=== PATIENT | female | born 1995 | race Two or more races ===

== ENCOUNTER 2025-01-04 18:39 | Emergency (ER) | payer MEDICAID, SELFPAY ==
[2025-01-04 18:40] VITALS: BMI 37.4
[2025-01-04 19:24] VITALS: BP 117/74; PULSE 62; RESP 16; TEMP 37; O2SAT 98
--- NOTE | 2025-01-04 19:36 | EKG_ITS ---
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
--- NOTE | 2025-01-04 19:38 | EDNOTE_ITS ---
ED Abdominal Pain RME/HPI General Chief Complaint: Abdominal Pain Stated complaint: EPISGASTRIC PAIN Time seen by provider: 01/04/25 19:38 Arrival date/time: 01/04/25 18:39 Limitations: no limitations RME / HPI RME / HPI narrative: 29-year-old female with no reported past medical history presents for evaluation of epigastric pain x 1 day. She describes it as sharp, intermittent, without radiation. She reports that it started after eating breakfast this morning. She endorses prior similar symptoms but states that this episode is worse. She denies known history of gallbladder disease. Denies nausea, vomiting, diarrhea, hemoptysis, fever, chills, substernal chest pain, shortness of breath, cough. Onset (ago): day(s) Consistency: intermittent Location: epigastric Exacerbating factors: eating Related Data Previous Rx's ?Medication ?Instructions ?Recorded aluminum-mag hydroxide-simethicone 10 ml PO QID PRN dy spepsia #3,000 01/04/25 200 mg-200 mg-20 mg/5 mL oral susp mL (Advanced Antacid-Antigas) lidocaine HCl 2 % mucosal solution 10 ml PO PRN PRN dy spepsia #100 mL 01/04/25 (Lidocaine Viscous) ondansetron 4 mg disintegrating 4 mg PO Q8H PRN nausea and 01/04/25 tablet vomiting #14 tabs Allergies Allergy/AdvReac Type Severity Reaction Status Date / Time No Known Allergies Allergy Verified 01/04/25 18:40 Review of Systems Constitutional Constitutional: Denies body ache(s), Denies chills, Denies fever(s), Denies headache(s) and Denies night sweats Eyes Eyes: Denies blurry vision and Denies change in vision ENT Ears, Nose, Mouth, and Throat: Denies disequilibrium, Denies dizziness, Denies f acial pain, Denies headache(s) and Denies neck pain Cardiovascular Cardiovascular: Denies chest pain, Denies dyspnea, Denies irregular heart rhythm and Denies leg edema Respiratory Respiratory: Denies cough, Denies dyspnea, Denies hemoptysis and Denies wheezing Gastrointestinal Gastrointestinal: Reports abdominal pain, Denies change in stool character, Denies constipation, Reports dyspepsia, Denies hematemesis, Denies hematochezia, Denies nausea and Denies vomiting Genitourinary Genitourinary: Denies dysuria Musculoskeletal Musculoskeletal: Denies back pain and Denies neck pain Integumentary/Breasts Skin/Breast: Denies rash and Denies wounds Neurologic Neurologic: Denies disequilibrium, Denies dizziness and Denies headache(s) Allergic/Immunologic Allergic/Immunologic: Denies wheezing Past Medical History Past Medical History NEUROLOGIC: Negative Neurological Disorders CARDIAC: Negative Cardiac Disorders or Congestive Heart Failure RESPIRATORY: Negative Chronic Obstructive Pulmonary Disease (COPD) GASTROINTESTINAL: Negative Gastrointestinal Disorders GENITOURINARY: Negative Genitourinary Disorders or Renal Disease MUSCULOSKELETAL: Negative Musculoskeletal Disorders ENDOCRINE: Negative Endocrine Disorders, Diabetes Mellitus Type 1 or Diabetes Mellitus Type 2 HEMATOLOGIC: Positive Blood Disorders and Anemia; Negative Leukemia, Hemophilia, Thalassemia, Sickle Cell Disease or Clotting Problems OTHER HISTORY: Negative Autoimmune Disease Family History FAMILY HISTORY: Negative Family Psychiatric Problems, Family Respiratory Disorders, Family Cardiac Disorders, Family Gastrointestinal Problems, Family Cancer, Family Surgery or Family Anesthesia Reaction Social History SMOKING STATUS: Never smoker ED Exam General Limitations: Present no limitations General appearance: Present alert and in no apparent distress Head Head exam: Present atraumatic and normocephalic Eye Eye exam: Present normal appearance and EOMI; Absent scleral icterus ENT ENT exam: Present normal oropharynx and mucous membranes moist Neck Neck exam: Present normal inspection and full ROM Chest Chest inspection: Present normal inspection and symmetric chest wall rise Respiratory Respiratory exam: Present normal lung sounds bilaterally; Absent respiratory distress or wheezes Cardiovascular Cardiovascular exam: Present regular rate and +S1 Abdominal Exam Abdominal exam: Present soft and normal bowel sounds; Absent distention, tenderness, guarding, rebound, rigidity, organomegaly, incision, Crawford's sign or pulsatile mass Extremities Exam Extremities exam: Present normal inspection and full ROM Back Exam Back exam: Present normal inspection and full ROM Neurological Exam Neurological exam: Present alert Psychiatric Psychiatric exam: Present normal affect Skin Skin exam: Present warm, dry and normal color Course Quality Measures none Orders Category Date Time Status EKG (ED ONLY) *Do not use* NOW Care 01/04/25 19:36 Completed EKG (ED Only) Stat Exams 01/04/25 19:36 Draft CBC Stat Lab 01/04/25 20:02 Completed CMP [Comprehensive Metabolic Panel] Stat Lab 01/04/25 20:02 Completed HCG Qualitative,Urine Stat Lab 01/04/25 20:39 Completed Lipase Stat Lab 01/04/25 20:02 Completed Troponin I Stat Lab 01/04/25 20:02 Completed UA, C/S IF [Urinalysis, C/S if Indicated] Stat Lab 01/04/25 20:39 Completed Urine Culture Stat Lab 01/04/25 20:39 Completed DiphenhydrAMINE [Benadryl] Med 01/04/25 19:35 Discontinued 25 mg PO X1 ONE Lidocaine 2% Viscous [Xylocaine 2% Viscous] Med 01/04/25 19:35 Discontinued 15 ml PO X1 ONE mg Hyd/Al Hyd/Vineet Susp [Maalox Susp] Med 01/04/25 19:35 Discontinued 30 ml PO X1 ONE Reevaluation(s) Reevaluation #1: Reevaluated the patient who reports that her abdominal pain is resolved following GI cocktail. We discussed the results of today's workup including her elevated liver enzymes. Given she has had recent similar symptoms it is possible this is related to gallbladder disease. Patient is requesting to be discharged home with plan to follow-up with closely with primary care tomorrow. Reported she needs to return to the ED if her pain worsens she develops fever chest pain or shortness of breath. Patient is stable at time of discharge. Time: 23:25 Vital Signs Vital signs: Vital Signs Temperature 98.6 F 01/04/25 19:24 Pulse Rate 62 01/04/25 19:24 Respiratory Rate 16 01/04/25 19:24 Blood Pressure 117/74 01/04/25 19:24 Pulse Oximetry (%) 98 01/04/25 19:24 Oxygen Delivery Method Room Air 01/04/25 19:24 Pulse ox 98% on room air, within normal limits. Abdominal Pain MDM MDM Narrative MDM Narrative:: 29-year-old female present with epigastric pain x 1 day started after she was eating breakfast. Vital signs reassuring. Unremarkable physical exam. Patient denied known history of gallbladder disease and initially I ordered a CT abdomen and pelvis, however unfortunately due to it down CT machine and delay in patient care wait time was extensive for CT. I gave the patient a GI cocktail and upon reevaluation discussed with her wait time for CT abdomen pelvis. Using shared decision making canceled CT abdomen pelvis with plan for her to follow-up with primary care for further evaluation and treatment. Cardiac workup today was negative. We did discuss her elevated liver enzymes which may point towards gallbladder involvement. Lipase and bilirubin were within normal limits therefore less concern for ductal involvement. Ultimately patient was discharged with antacids and plan to follow-up with primary care. Patient stable at time discharge. Patient data External records reviewed:: [facility] previous records Clinical information provided by:: patient Social determinants that could affect healthcare access:: none Patient has the following chronic illnesses:: None reported. How is presenting disease/condition affected by chronic disease/condition?: no chronic disease Evaluation data The following diagnostics were reviewed and interpreted by me:: lab results and radiology exam(s) Lab and/or radiology exams considered but not ordered:: CT abdomen and pelvis initially ordered but unfortunately due to down CT machine and prolonged delay in care was ultimately canceled using shared decision making with patient following improvement in her symptoms after GI cocktail and stable workup. Interpretation Summary: Troponin negative. EKG with nonspecific ST changes, no STEMI, normal rate. Tr ansaminitis on metabolic panel. No anemia or leukocytosis on CBC. Lipase normal. Medications / Prescriptions Medications or Prescriptions considered but not ordered:: Rx given. Medication administrations:: Medication Administration History Discontinued Medications Al Hydrox/Mg Hydrox/Simethicone (Mg Hyd/Al Hyd/Vineet (Maalox Reg) Susp 30 Ml Udc) 30 ml PO X1 ONE Stop: 01/04/25 19:36 Last Admin: 01/04/25 20:11 Dose: 30 ml Documented By: WILNER Diphenhydramine HCl (Diphenhydramine Elix 25 Mg/10 Ml Udc) 25 mg PO X1 ONE Stop: 01/04/25 19:36 Last Admin: 01/04/25 20:10 Dose: 25 mg Documented By: WILNER Lidocaine HCl (Lidocaine Viscous 2% 15 Ml Udc) 15 ml PO X1 ONE Stop: 01/04/25 19:36 Last Admin: 01/04/25 20:11 Dose: 15 ml Documented By: WILNER Rx given. Consultations Consultation(s) initiated? (list below): No Diagnosis Differential diagnosis abdominal pain: abdominal pain, calculus of kidney, diverticulitis, gastroenteritis, pancreatitis and other (GERD, cholelithiasis, cholecystitis, choledocholithiasis. ) Most likely diagnosis given after review of the tests above:: Abdominal pain, GERD. Admission Indicated Admission indicated?: not indicated Admission Request Was there a request for admission?: No Disposition Plan Disposition Plan: Discharge Discharge Attestation Discharge Attestation: The patient and all family members were given an opportunity to ask questions and understood the discharge instructions. Discharge instructions specifically effects, indications for sooner follow up or return to the emergency department, and the expected course of current diagnosis. Patient condition: Stable Discharge Plan Plan Patient Disposition: Elopement Disposition Comment: stable Prescriptions/Referrals Prescriptions/Med Rec: New alum-mag hydroxide-simeth [Advanced Antacid-Antigas] 200-200-20 mg/5 mL suspension 10 ml PO QID PRN (Reason: dyspepsia) Qty: 3000 0RF Rx Instructions: administer between meals and at bedtime lidocaine HCl [Lidocaine Viscous] 2 % solution 10 ml PO PRN PRN (Reason: dyspepsia) Qty: 100 0RF ondansetron 4 mg tablet,disintegrating 4 mg PO Q8H PRN (Reason: nausea and vomiting) Qty: 14 0RF Referrals: No Primary/Family,Physician [Primary Care Provider] - In 1 week Problem List Clinical Impression: Abdominal pain, Elevated liver enzymes Impression comment: Take Maalox daily for the next x 2 weeks. Take viscous lidocaine as needed for abdominal pain. Take Zofran as needed for nausea and vomiting. Follow-up with primary care regarding elevated liver enzymes. Return to the ED if your symptoms worsen or change. Patient/Caregiver Discharge Instructions Other Activity Instructions:: Take Maalox daily for the next x 2 weeks. Take viscous lidocaine as needed for abdominal pain. Take Zofran as needed for nausea and vomiting. Follow-up with primary care regarding elevated liver enzymes. Return to the ED if your symptoms worsen or change. Education Materials: Abdominal Pain, Treating Gallstones Print Language: Setswana Stand Alone Forms: Polina Award Info., Patient Portal Info Letter PA/ELECTRON MICROSCOPIST Supervising Physician PA/ELECTRON MICROSCOPIST Supervising Physician: Dr. Horton
[2025-01-04] MEDS: DiphenhydrAMINE ELIX 25 MG/10 ML UDC PO (20:10)
[2025-01-04] MEDS: MG HYD/AL HYD/SIME (Maalox Reg) SUSP 30 ML UDC PO (20:11)
[2025-01-04] MEDS: LIDOCAINE VISCOUS 2% 15 ML UDC PO (20:11)
[2025-01-04 20:12] LABS: Basophils % (Auto) 0 % (0-2.5); Eosinophils # (Auto) 0.1 Thou/mm3 (0.0-0.5); Eosinophils % (Auto) 1 % (0-10); Hematocrit 37.3 % (36.0-46.0); Hemoglobin 12.5 g/dL (12.0-16.0); Immature Granulocytes % (Auto) 0 % (0-0); Immature Granulocytes Auto 0.03 Thou/mm3 (0.00-0.00); Lymphocytes # (Auto) 1.9 Thou/mm3 (1.0-4.8); Lymphocytes % (Auto) 18 % (10-50); Mean Corpuscular HGB Conc 33.5 g/dl (31.0-37.0); Mean Corpuscular Hemoglobin 30.9 pg (25.0-35.0); Mean Corpuscular Volume 92 fL (80-100); Monocytes # (Auto) 0.9 Thou/mm3 (0.0-0.8); Monocytes % (Auto) 8 % (0-12); Neutrophils # (Auto) 7.6 Thou/mm3 (1.8-7.7); Neutrophils % (Auto) 72 % (37-80); Nucleated Red Blood Cell % 0 /100 WBC (0); Platelet Count 336 Thou/mm3 (140-440); RDW Standard Deviation 43.5 fL (36.4-46.3); Red Blood Count 4.05 Miln/mm3 (4.00-5.20); White Blood Count 10.5 Thou/mm3 (3.6-11.0)
[2025-01-04 20:29] LABS: Alanine Aminotransferase 101 U/L (10-49); Albumin, Serum 4.5 gm/dL (3.5-5.0); Albumin/Globulin Ratio 1.7 (1.2-2.2); Alkaline Phosphatase 59 U/L (46-116); Anion Gap 7 (7-16); Aspartate Amino Transferase 91 U/L (0-34); BUN/Creatinine Ratio 21 Ratio (12-20); Bilirubin,Total 0.5 mg/dL (0.3-1.2); Blood Urea Nitrogen 17 mg/dL (9-23); Calcium 9.3 mg/dL (8.3-10.6); Calcium (Corrected) 9.3 mg/dL (8.5-10.1); Carbon Dioxide 25.2 mMol/L (20.0-31.0); Chloride 107 mMol/L (98-107); Creatinine (Component) 0.8 mg/dL (0.6-1.3); Estimated Creatinine Clearance 87.7 mL/min (>60); Globulin 2.6 gm/dL (2.3-3.5); Glucose 76 mg/dL (74-106); Lipase 35 U/L (12-53); Osmolality,Calculated 278 (275-295); Potassium 3.7 mMol/L (3.4-5.1); Sodium 139 mMol/L (136-145); Total Protein 7.1 gm/dL (5.7-8.2); Troponin I < 0.002 ng/mL (0.0-0.045); eGFR > 60 See Note
[2025-01-04 20:43] LABS: Collection Type, Urine Clean Catch
[2025-01-04 20:54] LABS: HCG Qualitative,Urine Negative
[2025-01-04 21:00] LABS: Bacteria,Urine 1+; Bilirubin,Urine Negative (Negative); Blood,Urine Negative (Negative); Clarity,Urine Clear (Clear/Hazy); Color,Urine Yellow (Lt Yel-Yel); Glucose, Urine Negative (Negative); Hyaline Casts,Urine < 1 /hpf (0-1); Ketones,Urine Negative (Negative); Leukocyte Esterase,Urine Negative (Negative); Nitrite,Urine Negative (Negative); PH,Urine 5.5 (5.0-7.0); Protein,Urine Trace (Neg - Trace); RBC,Urine < 1 /hpf (0-3); Specific Gravity,Urine 1.038 (1.001-1.035); Squamous Epithelial Cell,Urine 6 /hpf (0-5); WBC,Urine 2 /hpf (0-5)
[2025-01-04 21:02] LABS: Culture Indicated,Urine Yes
--- NOTE | 2025-01-04 23:23 | PC.CC ---
Chen PISANO arranged transportation for CT with [facility] 1000
--- NOTE | 2025-01-05 01:05 | PC.NURSE ---
no answer x 1 at 0105. checked outside and lobby
--- NOTE | 2025-01-05 01:44 | PC.NURSE ---
CALLED PATIENT IN LOBBY AND OUTSIDE, NO ANSWER RECEIVED.
--- NOTE | 2025-01-05 02:20 | PC.NURSE ---
CALLED PATIENT IN THE LOBBY AND OUTSIDE, NO ANSWER RECEIVED.
== END 2025-01-05 02:21 | disposition left against medical advice (07) ==
PROVIDERS: Physician Assistant; Emergency Provider Emergency Medicine
DX: R10.13 Epigastric pain (principal); R74.8 Abnormal levels of other serum enzymes; Z53.29 Procedure and treatment not carried out because of patient's decision for other reasons
CPT/HCPCS: 36415; 80053; 81001; 81025; 83690; 84484; 85025; 87086; 93005; 99283; J3490; A9270

== ENCOUNTER 2025-03-04 20:37 | Inpatient (IN) | payer MEDICAID, SELFPAY ==
[2025-03-04 20:38] VITALS: BMI 32.0
[2025-03-04 22:33] VITALS: BP 135/82; PULSE 60; RESP 18; TEMP 36.6; O2SAT 99
[2025-03-04] MEDS: ONDANSETRON ODT 4 MG TABRAP PO (23:31)
[2025-03-04] MEDS: HYDROcodone/APAP 5/325 TABLET 1 TAB PO (23:31)
[2025-03-04 23:49] LABS: Basophils % (Auto) 0 % (0-2.5); Eosinophils % (Auto) 0 % (0-10); Hematocrit 39.4 % (36.0-46.0); Hemoglobin 13.4 g/dL (12.0-16.0); Immature Granulocytes % (Auto) 0 % (0-0); Immature Granulocytes Auto 0.03 Thou/mm3 (0.00-0.00); Lymphocytes # (Auto) 1.9 Thou/mm3 (1.0-4.8); Lymphocytes % (Auto) 18 % (10-50); Mean Corpuscular Hemoglobin 31.3 pg (25.0-35.0); Mean Corpuscular Volume 92 fL (80-100); Monocytes # (Auto) 0.8 Thou/mm3 (0.0-0.8); Monocytes % (Auto) 7 % (0-12); Neutrophils # (Auto) 7.8 Thou/mm3 (1.8-7.7); Neutrophils % (Auto) 74 % (37-80); Nucleated Red Blood Cell % 0 /100 WBC (0); Platelet Count 355 Thou/mm3 (140-440); RDW Standard Deviation 43.3 fL (36.4-46.3); Red Blood Count 4.28 Miln/mm3 (4.00-5.20); White Blood Count 10.6 Thou/mm3 (3.6-11.0)
[2025-03-05] VITALS (13 sets, daily range): BP systolic 116–148; BP diastolic 61–110; PULSE 52–73; RESP 16–22; TEMP 36.3–37.3; O2SAT 91–100; BMI 32.9
--- NOTE | 2025-03-05 | XR_ITS ---
Examination: Abdomen sonogram, Limited Date and time of exam: March 05, 2025 12 min 9 INDICATIONS: Epigastric pain beginning one day ago Technique: Real-time oro scale transabdominal sonographic images of the upper abdomen obtained. Findings: Multiple gallstones Normal gallbladder wall Normal common bile duct 0.3 cm Pancreatic head 3.2 cm Liver 16.8 cm fatty infiltration lobular contour Normal hepatopedal portal venous flow Patent IVC IMPRESSION: Cholelithiasis, primary hepatocellular disease
--- NOTE | 2025-03-05 | XR_ITS ---
MRI abdomen, without contrast. MRCP Date and time of exam: March 05, 2025 1431 hours INDICATIONS: Right upper abdominal pain epigastric pain nausea vomiting, intractable pain today with elevated transaminases Technique: Multiple axial and coronal images of the abdomen have been obtained with the Siemens 1.5T MRI scanner. Images obtained included T1 weighted transverse images, T2-weighted transverse images, T2-weighted transverse images fat-suppressed, T2 weighted haste fat suppressed transverse images, T1 weighted images, in and out of phase images, T2-weighted coronal images, breath hold, T2 weighted haze coronal images as well as T2 weighted coronal thick slab images, MRCP. Findings: Hepatomegaly 17 cm Gallstones Gallbladder wall shows mild edema The gallbladder is not distended Normal common hepatic common bile duct no stones No dilated pancreatic duct or peripancreatic edema No hydronephrosis No ascites Aorta normal size IMPRESSION: Cholelithiasis Mild gallbladder wall edema No common hepatic or common bile duct stones
[2025-03-05 00:20] LABS: Alanine Aminotransferase 623 U/L (10-49); Albumin, Serum 4.6 gm/dL (3.5-5.0); Albumin/Globulin Ratio 1.8 (1.2-2.2); Alkaline Phosphatase 83 U/L (46-116); Anion Gap 13 (7-16); Aspartate Amino Transferase 944 U/L (0-34); BUN/Creatinine Ratio 18 Ratio (12-20); Bilirubin,Total 0.8 mg/dL (0.3-1.2); Blood Urea Nitrogen 11 mg/dL (9-23); Carbon Dioxide 25.9 mMol/L (20.0-31.0); Chloride 105 mMol/L (98-107); Creatinine (Component) 0.6 mg/dL (0.6-1.3); Estimated Creatinine Clearance 122.4 mL/min (>60); Globulin 2.5 gm/dL (2.3-3.5); Glucose 131 mg/dL (74-106); Lipase 40 U/L (12-53); Osmolality,Calculated 288 (275-295); Potassium 4.1 mMol/L (3.4-5.1); Sodium 144 mMol/L (136-145); Total Protein 7.1 gm/dL (5.7-8.2); eGFR > 60 See Note
--- NOTE | 2025-03-05 00:54 | PRELIM_ITS ---
Gallbladder ultrasound. March 05, 2025 at 0000 hours Clinical history: RUQ/epigastric pain Technique: Grayscale and color flow images of the abdomen are provided. Comparison: No prior study is available for comparison. Findings: The liver is mildly enlarged measuring 16.8 cm. There is increased echogenicity of the liver without mass or ductal dilatation. The portal vein appears unremarkable. Multiple calculi are noted within the gallbladder, without evidence of gallbladder wall thickening or pericholecystic fluid. The common d uct is normal in caliber at 2.5 mm. No free fluid is demonstrated on the submitted images. The pancreas appears mildly bulky to the extent visualized. The inferior vena cava appears patent to the extent visualised. Impression: Cholelithiasis without evidence of acute cholecystitis or biliary obstruction. Mild hepatomegaly with fatty infiltration. Pancreas appears mildly bulky to the extent visualized. Recommend clinical, laboratory correlation and further evaluation with intravenous contrast CT to rule out possibility of pancreatitis. Report Electronically Signed By: Hallie Desai 03/05/2025 12:54:03 AM [EST]
[2025-03-05 01:01] LABS: Partial Thromboplastin Time 27.9 Seconds (22.0-36.0)
--- NOTE | 2025-03-05 01:19 | XR_ITS ---
Examination: CT abdomen with intravenous contrast CT pelvis with intravenous contrast 2-D coronal reconstructions 2-D sagittal reconstructions Date and time of exam:March 05, 2025, 0322 hours INDICATIONS: Epigastric pain and abdominal pain today, clinical diagnosis pancreatitis. CTDI: vol (mGy) 12 DLP: (mGycm) 600 Technique: Multiple axial sections of the abdomen and pelvis have been obtained. 64 slice high-resolution scanner used. 3 mm axial sections have been obtained, post intravenous injection 60 cc Isovue 370 2-D sagittal, coronal reconstructions obtained. Low dose protocols were performed. One or more of the following dose reduction techniques were used; automated exposure control, adjustment of the mA and/or KV according to patient size, use of iterative reconstruction technique. Findings: Fatty infiltration throughout the liver No focal liver or splenic lesions Gallbladder wall thickening No pancreatic edema No renal or ureteral calculi, no hydronephrosis Aorta normal size The appendix is mildly thickened but no definite periappendiceal inflammatory change No bowel obstruction Right pelvic 33 mm hypodense mass Contracted urinary bladder IMPRESSION: Acute cholecystitis The appendix is mildly thickened but no definite periappendiceal inflammatory change,, the appearance should be clinically correlated Recommend pelvic sonography to assess 33 mm hypodense mass right pelvis
[2025-03-05 01:41] LABS: Hepatitis A Antibody IgM Non Reactive (Non React); Hepatitis B Core Antibody IgM Non Reactive (Non React); Hepatitis B Surface Antigen Non Reactive (Non React); Hepatitis C Antibody Non Reactive (Non React)
[2025-03-05] MEDS: SODIUM CHLORIDE 0.9% 1000 ML 1,000 ML 999 ML IV ×2 (01:44→11:56)
[2025-03-05] MEDS: MORPHINE SULF INJ 10 MG/ML VIAL 5 MG IVP (01:49)
[2025-03-05] MEDS: ONDANSETRON INJ 2 MG/ML INJ 2 ML 4 MG IV ×2 (01:50→11:56)
[2025-03-05 02:33] LABS: HCG Qualitative,Urine Negative
[2025-03-05 04:40] LABS: Amphetamine/Methamp Scrn,U Negative (Negative); Barbiturate Screen,Urine Negative (Negative); Benzodiazepines Screen,Urine Negative (Negative); Benzoylecgonine Screen, Ur Negative (Negative); Fentanyl Screen,Urine Negative (Negative); Opiate Screen,Urine Negative (Negative); THC Screen,Urine Negative (Negative)
--- NOTE | 2025-03-05 04:42 | EDNOTE_ITS ---
ED Abdominal Pain RME/HPI General Chief Complaint: Abdominal Pain Stated complaint: EPIGASTRIC AREA PAIIN Time seen by provider: 03/04/25 22:10 Arrival date/time: 03/04/25 20:37 29F with history of gallstones presents to ED with 1 day of RUQ/epigastric pain (epi>RUQ) and N/V. Patient has outpatient gen surg referral scheduled, but hasn't seen them yet. Limitations: no limitations Related Data Previous Rx's ?Medication ?Instructions ?Recorded aluminum-mag hydroxide-simethicone 10 ml PO QID PRN dy spepsia #3,000 01/04/25 200 mg-200 mg-20 mg/5 mL oral susp mL (Advanced Antacid-Antigas) lidocaine HCl 2 % mucosal solution 10 ml PO PRN PRN dy spepsia #100 mL 01/04/25 (Lidocaine Viscous) ondansetron 4 mg disintegrating 4 mg PO Q8H PRN nausea and 01/04/25 tablet vomiting #14 tabs Allergies Allergy/AdvReac Type Severity Reaction Status Date / Time No Known Allergies Allergy Verified 03/04/25 20:43 Review of Systems Review of Systems Systems Reviewed: All systems reviewed, normal except as documented Constitutional Constitutional: Reports system reviewed and no additional complaints, except as documented, Denies fever(s) and Denies headache(s) ENT Ears, Nose, Mouth, and Throat: Denies disequilibrium and Denies headache(s) Cardiovascular Cardiovascular: Reports system reviewed and no additional complaints, except as documented, Denies chest pain and Denies dyspnea Respiratory Respiratory: Reports system reviewed and no additional complaints, except as documented, Denies cough and Denies dyspnea Gastrointestinal Gastrointestinal: Reports system reviewed and no additional complaints, except as documented, Reports as per HPI, Reports abdominal pain, Reports nausea and Reports vomiting Neurologic Neurologic: Reports system reviewed and no additional complaints, except as d ocumented, Denies confusion, Denies disequilibrium and Denies headache(s) Psychiatric Psychiatric: Denies confusion Past Medical History Past Medical History NEUROLOGIC: Negative Neurological Disorders CARDIAC: Negative Cardiac Disorders or Congestive Heart Failure RESPIRATORY: Negative Chronic Obstructive Pulmonary Disease (COPD) or Asthma GASTROINTESTINAL: Negative Gastrointestinal Disorders GENITOURINARY: Negative Genitourinary Disorders or Renal Disease MUSCULOSKELETAL: Negative Musculoskeletal Disorders ENDOCRINE: Negative Endocrine Disorders, Diabetes Mellitus Type 1 or Diabetes Mellitus Type 2 HEMATOLOGIC: Positive Blood Disorders and Anemia; Negative Leukemia, Hemophilia, Thalassemia, Sickle Cell Disease or Clotting Problems OTHER HISTORY: Negative Autoimmune Disease Family History FAMILY HISTORY: Negative Family Psychiatric Problems, Family Respiratory Disorders, Family Cardiac Disorders, Family Gastrointestinal Problems, Family Cancer, Family Surgery or Family Anesthesia Reaction Social History SMOKING STATUS: Never smoker ED Exam General Limitations: Present no limitations General appearance: Present alert and in no apparent distress Head Head exam: Present atraumatic Eye Eye exam: Present normal appearance, PERRL and EOMI ENT ENT exam: Present normal exam, normal oropharynx and mucous membranes moist Neck Neck exam: Present normal inspection, full ROM and trachea midline Chest Chest inspection: Present normal inspection and symmetric chest wall rise Respiratory Respiratory exam: Present normal lung sounds bilaterally Cardiovascular Cardiovascular exam: Present regular rate, normal rhythm and normal heart sounds Abdominal Exam Abdominal exam: Present soft and normal bowel sounds Abdominal tenderness: Present RUQ and epigastrium Extremities Exam Extremities exam: Present normal inspection and full ROM Back Exam Back exam: Present normal inspection and full ROM Neurological Exam Neurological exam: Present alert, oriented X3 and CN II-XII intact Psychiatric Psychiatric exam: Present normal affect and normal mood Skin Skin exam: Present warm, dry, intact and normal color Course Quality Measures none Orders Category Date Time Status Admit to Inpatient Status Routine Admission 03/05/25 18:00 Active Patient Condition Routine Admission 03/05/25 18:00 Ordered COVID-19 Screening Questionnaire NOW Care 03/05/25 05:[address] Screening NOW Care 03/05/25 01:19 Active Decision to Admit X1 Care 03/05/25 05:34 Completed Insert IV NOW Care 03/05/25 01:19 Active MRI Screening NOW Care 03/05/25 11:30 Active NPO NOW Care 03/05/25 00:26 Active NPO NOW Care 03/05/25 18:00 Active Notify provider NEEDED Care 03/05/25 18:00 Active Obtain weight NOW Care 03/05/25 18:00 Active Consult to General Surgery Stat Cons 03/05/25 05:34 Ordered Diet NPO (NOW) Diet 03/05/25 00:26 Completed Diet NPO (NOW) Diet 03/05/25 18:[address] abdomen pelvis w con Stat Exams 03/05/25 01:19 Completed MR MRCP Stat Exams 03/05/25 Completed US abdomen limited Stat Exams 03/05/25 11:30 Completed US gall bladder Stat Exams 03/05/25 00:00 Completed US pelvic complete Stat Exams 03/05/25 12:27 Completed Acetaminophen Stat Lab 03/05/25 17:50 Received CBC AM DRAW Lab 03/06/25 05:00 Ordered CBC AM DRAW Lab 03/07/25 05:00 Ordered CBC AM DRAW Lab 03/08/25 05:00 Ordered CBC AM DRAW Lab 03/09/25 05:00 Ordered CBC Stat Lab 03/04/25 23:33 Completed CBC Stat Lab 03/05/25 17:50 Received CMP [Comprehensive Metabolic Panel] AM DRAW Lab 03/06/25 05:00 Ordered CMP [Comprehensive Metabolic Panel] AM DRAW Lab 03/07/25 05:00 Ordered CMP [Comprehensive Metabolic Panel] AM DRAW Lab 03/08/25 05:00 Ordered CMP [Comprehensive Metabolic Panel] AM DRAW Lab 03/09/25 05:00 Ordered CMP [Comprehensive Metabolic Panel] Stat Lab 03/04/25 23:33 Completed CMP [Comprehensive Metabolic Panel] Stat Lab 03/05/25 17:50 Received Drug Screen,Urine Stat Lab 03/05/25 01:45 Completed Gamma Glutamyl Transpeptidase* Routine Lab 03/05/25 17:50 Received HCG Qualitative,Urine Stat Lab 03/05/25 01:45 Completed Hepatitis Acute Panel Stat Lab 03/05/25 00:26 Completed Hepatitis Acute Panel Stat Lab 03/05/25 11:45 Completed INR [Prothrombin Time with INR] Stat Lab 03/05/25 00:41 Completed Lipase Stat Lab 03/04/25 23:33 Completed Lipid Panel Stat Lab 03/05/25 11:45 Completed Magnesium AM DRAW Lab 03/06/25 05:00 Ordered Magnesium AM DRAW Lab 03/07/25 05:00 Ordered Magnesium AM DRAW Lab 03/08/25 05:00 Ordered Magnesium AM DRAW Lab 03/09/25 05:00 Ordered PTT [Partial Thromboplastin Time] Stat Lab 03/05/25 00:41 Completed Phosphorous AM DRAW Lab 03/06/25 05:00 Ordered Phosphorous AM DRAW Lab 03/07/25 05:00 Ordered Phosphorous AM DRAW Lab 03/08/25 05:00 Ordered Phosphorous AM DRAW Lab 03/09/25 05:00 Ordered Acetaminophen Tab [Tylenol Tab] Med 03/05/25 17:59 Active 650 mg PO Q6H PRN Acetaminophen Tab [Tylenol Tab] Med 03/05/25 17:59 Active 650 mg PO Q6H PRN DiphenhydrAMINE INJ [Benadryl Inj] Med 03/05/25 03:15 Discontinued 12.5 mg IVP X1 ONE HYDROcodone*/APAP 5/325 [[place] 5/325] Med 03/04/25 22:49 Discontinued 1 tab PO X1 ONE HYDROcodone/APAP 10/325 [[place] 10/325] Med 03/05/25 17:59 Active 1 tab PO Q4HR PRN Heparin Inj Med 03/05/25 22:00 Active 5,000 unit SC Q8HR Metoclopramide Inj [Reglan Inj] Med 03/05/25 03:15 Discontinued 10 mg IVP X1 ONE Morphine Inj Med 03/05/25 11:30 Discontinued 4 mg IVP X1 ONE Morphine Inj Med 03/05/25 01:40 Discontinued 5 mg IVP X1 ONE Ondansetron Inj [Zofran Inj] Med 03/05/25 01:40 Discontinued 4 mg IV X1 ONE Ondansetron Inj [Zofran Inj] Med 03/05/25 11:30 Discontinued 4 mg IV X1 ONE Ondansetron Inj [Zofran Inj] Med 03/05/25 17:59 Active 4 mg IVP Q6H PRN Ondansetron Odt [Zofran Odt] Med 03/04/25 22:49 Discontinued 4 mg PO X1 ONE Pantoprazole Inj [Protonix Inj] Med 03/05/25 18:00 Active 40 mg IVP QDAY Piper/Tazo 3.375 gm Premix [Zosyn] Med 03/05/25 18:15 Active 3.375 gm in 50 ml IV Q8HR Piper/Tazo 3.375 gm Premix [Zosyn] Med 03/05/25 05:33 Discontinued 3.375 gm in 50 ml IV X1 Sodium Chloride 0.9% 1000 ml [Ns] 1,000 ml Med 03/05/25 11:30 Discontinued IV 150 mls/hr Sodium Chloride 0.9% 1000 ml [Ns] 1,000 ml Med 03/05/25 00:26 Discontinued IV 999 mls/hr Sodium Chloride 0.9% 1000 ml [Ns] 1,000 ml Med 03/05/25 11:30 Discontinued IV 999 mls/hr oxyCODONE/APAP 5/325 [Percocet 5/325] Med 03/05/25 17:59 Active 1 tab PO Q6H PRN Code Status Routine Oth 03/05/25 17:59 Ordered Vital Signs Vital signs: Vital Signs Temperature 98 F 03/04/25 22:33 Pulse Rate 60 03/04/25 22:33 Respiratory Rate 18 03/04/25 22:33 Blood Pressure 135/82 H 03/04/25 22:33 Pulse Oximetry (%) 99 03/04/25 22:33 Oxygen Delivery Method Room Air 03/04/25 22:33 O2 at 99% on RA and WNLs Abdominal Pain MDM MDM Narrative MDM Narrative:: 29F with history of gallstones presents to ED with 1 day of RUQ/epigastric pain (epi>RUQ) and N/V. Patient has outpatient gen surg referral scheduled, but hasn't seen them yet. Physical exam reveals RUQ/epigastric tenderness (epi>RUQ). Patient is afebrile, calm, and alert. US reveals gallstones, but no gallbladder inflammation. It does show possibly enlarged pancreas. But lipase is normal. CMP reveals highly elevated LFTs, but normal bili. Alcohol/tox/HCG screen neg. Hep panel normal. Care signed out to colleague. Patient eventually admitted. Patient data External records reviewed:: [facility] previous records Clinical information provided by:: patient Social determinants that could affect healthcare access:: none Patient has the following chronic illnesses:: none How is presenting disease/condition affected by chronic disease/condition?: no chronic disease Evaluation data The following diagnostics were reviewed and interpreted by me:: lab results and radiology exam(s) Lab and/or radiology exams considered but not ordered:: ordered Interpretation Summary: above Medications / Prescriptions Medications or Prescriptions considered but not ordered:: ordered Medication administrations:: Medication Administration History Acetaminophen (Acetaminophen 325 Mg Tablet) 650 mg PO Q6H PRN PRN Reason: PAIN SCALE 1-3 (mild Stop: 04/04/25 17:58 Acetaminophen (Acetaminophen 325 Mg Tablet) 650 mg PO Q6H PRN PRN Reason: Fever >100.4 Stop: 04/04/25 17:58 Hydrocodone Bitart/Acetaminophen (Hydrocodone/Apap 10/325 Tab) 1 tab PO Q4HR PRN PRN Reason: PAIN SCALE 7-10 (Severe Stop: 03/10/25 17:58 Heparin Sodium (Porcine) (Heparin Sod Inj 5000 Unit/Ml Vial) 5,000 unit SC Q8HR JAIRO Stop: 03/19/25 21:59 Piperacillin/Tazobactam/Dextrose (Zosyn) 3.375 gm in 50 mls @ 12.5 mls/hr IV Q8HR JAIRO; Protocol Stop: 03/12/25 18:14 Ondansetron HCl (Ondansetron Inj 2 Mg/Ml Inj 2 Ml) 4 mg IVP Q6H PRN; Protocol PRN Reason: NAUSEA OR VOMITING Stop: 04/04/25 17:58 Oxycodone/Acetaminophen (Oxycodone/Apap 5/325 Tablet) 1 tab PO Q6H PRN PRN Reason: PAIN SCALE 4-6 (Moderate Stop: 03/10/25 17:58 Pantoprazole Sodium (Pantoprazole Inj 40 Mg Vial) 40 mg IVP QDAY JAIRO Stop: 04/04/25 17:59 Discontinued Medications Hydrocodone Bitart/Acetaminophen (Hydrocodone/Apap 5/325 Tablet) 1 tab PO X1 ONE Stop: 03/04/25 22:50 Last Admin: 03/04/25 23:31 Dose: 1 tab Documented By: Diphenhydramine HCl (Diphenhydramine Inj 50 Mg/Ml Vial) 12.5 mg IVP X1 ONE Stop: 03/05/25 03:16 Last Admin: 03/05/25 04:55 Dose: Not Given Documented By: WILNER Non-Admin Reason: Patient Refused Sodium Chloride (Ns) 1,000 mls @ 999 mls/hr IV .Q1H1M ONE Stop: 03/05/25 01:26 Last Infusion: 03/05/25 02:47 Dose: Infused Documented By: Admin: 03/05/25 01:44 Dose: 999 mls/hr Documented By: WILNER Piperacillin/Tazobactam/Dextrose (Zosyn) 3.375 gm in 50 mls @ 100 mls/hr IV X1 ONE Stop: 03/05/25 06:02 Last Infusion: 03/05/25 06:22 Dose: Infused Documented By: Admin: 03/05/25 05:47 Dose: 100 mls/hr Documented By: WILNER Sodium Chloride (Ns) 1,000 mls @ 150 mls/hr IV .Q6H40M ONE Stop: 03/05/25 18:09 Last Admin: 03/05/25 13:44 Dose: 150 mls/hr Documented By: CRISTIANE Sodium Chloride (Ns) 1,000 mls @ 999 mls/hr IV .Q1H1M ONE Stop: 03/05/25 12:30 Last Infusion: 03/05/25 13:45 Dose: Infused Documented By: Admin: 03/05/25 11:56 Dose: 999 mls/hr Documented By: CRISTIANE Metoclopramide HCl (Metoclopramide Inj 5 Mg/Ml Vial 2 Ml) 10 mg IVP X1 ONE; Protocol Stop: 03/05/25 03:16 Last Admin: 03/05/25 04:55 Dose: Not Given Documented By: WILNER Non-Admin Reason: Patient Refused Morphine Sulfate (Morphine Sulf Inj 10 Mg/Ml Vial) 5 mg IVP X1 ONE Stop: 03/05/25 01:41 Last Admin: 03/05/25 01:49 Dose: 5 mg Documented By: WILNER Morphine Sulfate (Morphine Sulf Inj 10 Mg/Ml Vial) 4 mg IVP X1 ONE Stop: 03/05/25 11:31 Last Admin: 03/05/25 11:56 Dose: 4 mg Documented By: CRISTIANE Ondansetron HCl (Ondansetron Odt 4 Mg Tabrap) 4 mg PO X1 ONE; Protocol Stop: 03/04/25 22:50 Last Admin: 03/04/25 23:31 Dose: 4 mg Documented By: Ondansetron HCl (Ondansetron Inj 2 Mg/Ml Inj 2 Ml) 4 mg IV X1 ONE; Protocol Stop: 03/05/25 01:41 Last Admin: 03/05/25 01:50 Dose: 4 mg Documented By: WILNER Ondansetron HCl (Ondansetron Inj 2 Mg/Ml Inj 2 Ml) 4 mg IV X1 ONE; Protocol Stop: 03/05/25 11:31 Last Admin: 03/05/25 11:56 Dose: 4 mg Documented By: CRISTIANE above Consultations Consultation(s) initiated? (list below): Yes Diagnosis Differential diagnosis abdominal pain: abdominal pain, acute appendicitis, calculus of kidney, constipation, diverticulitis, endometriosis, gastroenteritis, pancreatitis, small bowel obstruction and other (biliary disease) Most likely diagnosis given after review of the tests above:: biliary disease Admission Indicated Admission indicated?: indicated Admission Request Was there a request for admission?: Yes Admission Attestation Admission request attestation: Discussed case with [] from Hospitalist service regarding admission. Discussed patients ED course, exam findings, labs, and radiology results. The Hospitalist [agrees,declines] to accept the patient for admission. Disposition Plan Disposition Plan: Admit Discharge Plan Plan Patient Disposition: Admit Acute Care w/in Hospital Prescriptions/Referrals Prescriptions/Med Rec: No Action alum-mag hydroxide-simeth [Advanced Antacid-Antigas] 200-200-20 mg/5 mL suspension 10 ml PO QID PRN (Reason: dyspepsia) Qty: 3000 0RF Rx Instructions: administer between meals and at bedtime lidocaine HCl [Lidocaine Viscous] 2 % solution 10 ml PO PRN PRN (Reason: dyspepsia) Qty: 100 0RF ondansetron 4 mg tablet,disintegrating 4 mg PO Q8H PRN (Reason: nausea and vomiting) Qty: 14 0RF Referrals: No Primary/Family,Physician [Primary Care Provider] - In 1 week Problem List Clinical Impression: Intractable abdominal pain, Cholelithiasis, Elevated transaminase level Patient/Caregiver Discharge Instructions Print Language: Khmer Stand Alone Forms: Polina Award Info., Patient Portal Info Letter
[2025-03-05] MEDS: PIPER/TAZO 3.375 GM PREMIX 3.375 GM/50 ML BAG IV ×2 (05:47→18:46)
--- NOTE | 2025-03-05 08:00 | PC.NURSE ---
In to assess pt. Pt resting quietly at this time without any complaints. Report 0/10 pain at this time. Call light placed within reach. Plan for consult by Dr. Gentile. Plan of care ongoing.
--- NOTE | 2025-03-05 11:30 | XR_ITS ---
Examination: Abdomen sonogram, Limited Date and time of exam: March 05, 2025 1244 hours INDICATIONS: Right upper abdominal pain epigastric pain nausea vomiting today Technique: Real-time oro scale transabdominal sonographic images of the upper abdomen obtained. Findings: Multiple gallstones Gallbladder wall 0.7 cm with edema Common bile duct 0.5 cm Pancreatic head 3.3 cm Liver 17.1 cm fatty infiltration no focal liver lesions Normal hepatopedal portal venous flow Patent IVC IMPRESSION: Acute calculus cholecystitis
--- NOTE | 2025-03-05 11:34 | PD.EDADULT ---
ED General RME/HPI General Chief complaint: Abdominal Pain Stated complaint: EPIGASTRIC AREA PAIIN Time Seen by Provider: 03/04/25 22:10 Arrival date/time: 03/04/25 20:37 Limitations: no limitations RME / HPI RME / HPI narrative: DR. CROCKETT MAIN ED EVALUATION: 1130: Care assumed from Dwight Little who signed out to Vito Garcia this morning, now I will assume care. I will do a full note since patient has been here since last night. Please refer to the emergency department record for history and examination from initial visit.? 29 year old female presents to the Emergency Department with complaint of epigastric abdominal pain since 7 PM yesterday. Associated symptoms include nausea and vomiting. Patient still is here for unchanged pain for 16 hours . PMHx: No known PMHx, surgeries, daily medications, or known allergies. Social Hx: No tobacco, alcohol, or substance use. Related Data Allergies Allergy/AdvReac Type Severity Reaction Status Date / Time No Known Allergies Allergy Verified 03/04/25 20:43 Review of Systems Review of Systems Systems Reviewed: All systems reviewed, normal except as documented Narrative Review of Systems: Constitutional: DENIES: fevers; Eyes: DENIES: loss of vision; Head/Ear/Nose: DENIES: loss of hearing. Throat: DENIES: dysphagia. Cardiovascular: DENIES: chest pain, dyspnea, or syncope. Respiratory: DENIES: shortness of breath; Gastrointestinal: POSITIVES: epigastric abdominal pain, nausea, and vomiting; DENIES: rectal bleeding or melena. Genitourinary: DENIES: dysuria (painful or difficult urination); Musculoskeletal: DENIES: arthralgia (pain in a joint); Skin: DENIES: rash; Neurological: DENIES: loss of function or movement; Psychiatric: DENIES: recent major life stressor, emotional problem, illicit drug use or abuse; Endocrinology: DENIES: weight change,; Hematologic/Lymphatic: DENIES: abnormal bruising. Allergic/Immunologic: DENIES: urticaria (hives). Past Medical History Past Medical History HEMATOLOGIC: Positive Blood Disorders and Anemia Social History SMOKING STATUS: Never smoker SUBSTANCE USE: does not use ALCOHOL: Never ED Exam Narrative Physical exam: Physical Exam:? General:?? ? The vital signs were reviewed. ? ? The patient is non-toxic, in no apparent distress and appears healthy with a patent airway, no respiratory distress and has no apparent circulatory problems. Head & Scalp:?? ? Normocephalic, atraumatic. Face:?? ? Appears normal and is without lesions, deformity. Ears:??? Left external pinna appears normal. ? ? Right external pinna appears normal. Eyes:?? ? The sclera is anicteric.? No obvious photophobia. ? ? The Left and Right Orbit/Lid/Conjunctiva appears normal without swelling, discoloration or injection. Nose: ? ? The nose is without deformity, discharge or tenderness; Throat: ? ? Appears normal.? The mucous membranes are pink and moist without exudates, redness or mass seen.? The tongue appears normal. Neck: The neck is supple and no apparent mass or adenopathy. Chest: The chest wall is normal in size and symmetry and has no chest wall tenderness or crepitus. ? ? The patient displays normal ventilator effort without retractions, accessory muscle use and has adequate air movement bilaterally with no wheezes and no rales. ? Cardiovascular: Regular rate and rhythm; No murmurs, rubs, or gallops; Gastrointestinal: The abdomen appears normal.? No obvious hernias or mass. Patient has upper belly pain/ tenderness. Bowel sounds are present and normal sounding.? No CVA tenderness. Genitourinary: Back/Spine: Extremities/Musculoskeletal/lymphatic:? ? ? The bilateral upper and lower extremities are warm. There is no evidence of arterial? insufficiency. There is no evidence of venous insufficiency/edema. The patient spontaneously moves bilateral upper and lower extremities with no pain and no limitation of movement.? There is no apparent, injury or trauma. Skin:? The skin is warm, dry and intact.? No rashes. No petechia. No purpura. No abnormal bruising.? The color is appropriate with no cyanosis. Mental status/Psychiatric: Mental status is appropriate for age. The patient has no apparent delusions, visual hallucinations, no apparent audible hallucinations. The patient has no apparent suicidal thoughts/ideation and no apparent homicidal thoughts/ideation. Neurological:? The patient is awake, alert, interactive, cordial, cooperative and is oriented to name and situation. The patient follows commands and answers historical question with no impairment.?? There is no visual disturbance apparent.? The pupils are equal and reactive bilaterally with normal eye movements and no diplopia The bilateral upper and lower extremities have normal strength, normal range of motion and normal functioning. The gait, station and balance appears? to be baseline with no acute change General Limitations: Present no limitations Course Quality Measures none Orders Category Date Time Status Admit to Inpatient Status Routine Admission 03/05/25 18:00 Active Patient Condition Routine Admission 03/05/25 18:00 Ordered COVID-19 Screening Questionnaire NOW Care 03/05/25 05:[address] Screening NOW Care 03/05/25 01:19 Completed Decision to Admit X1 Care 03/05/25 05:34 Completed Insert IV NOW Care 03/05/25 01:19 Active MRI Screening NOW Care 03/05/25 11:30 Completed NPO NOW Care 03/05/25 00:26 Active NPO NOW Care 03/05/25 18:00 Active Notify provider NEEDED Care 03/05/25 18:00 Active Obtain weight NOW Care 03/05/25 18:00 Active Consult to General Surgery Stat Cons 03/05/25 05:34 Ordered Diet NPO (NOW) Diet 03/05/25 00:26 Completed Diet NPO (NOW) Diet 03/05/25 18:[address] abdomen pelvis w con Stat Exams 03/05/25 01:19 Completed MR MRCP Stat Exams 03/05/25 Completed US abdomen limited Stat Exams 03/05/25 11:30 Completed US gall bladder Stat Exams 03/05/25 00:00 Completed US pelvic complete Stat Exams 03/05/25 12:27 Completed Acetaminophen Stat Lab 03/05/25 17:50 Completed CBC AM DRAW Lab 03/06/25 05:00 Ordered CBC AM DRAW Lab 03/07/25 05:00 Ordered CBC AM DRAW Lab 03/08/25 05:00 Ordered CBC AM DRAW Lab 03/09/25 05:00 Ordered CBC Stat Lab 03/04/25 23:33 Completed CBC Stat Lab 03/05/25 17:50 Completed CMP [Comprehensive Metabolic Panel] AM DRAW Lab 03/06/25 05:00 Ordered CMP [Comprehensive Metabolic Panel] AM DRAW Lab 03/07/25 05:00 Ordered CMP [Comprehensive Metabolic Panel] AM DRAW Lab 03/08/25 05:00 Ordered CMP [Comprehensive Metabolic Panel] AM DRAW Lab 03/09/25 05:00 Ordered CMP [Comprehensive Metabolic Panel] Stat Lab 03/04/25 23:33 Completed CMP [Comprehensive Metabolic Panel] Stat Lab 03/05/25 17:50 Completed Drug Screen,Urine Stat Lab 03/05/25 01:45 Completed Gamma Glutamyl Transpeptidase* Routine Lab 03/05/25 17:50 Received HCG Qualitative,Urine Stat Lab 03/05/25 01:45 Completed Hepatitis Acute Panel Stat Lab 03/05/25 00:26 Completed Hepatitis Acute Panel Stat Lab 03/05/25 11:45 Completed INR [Prothrombin Time with INR] Stat Lab 03/05/25 00:41 Completed Lipase Stat Lab 03/04/25 23:33 Completed Lipid Panel Stat Lab 03/05/25 11:45 Completed Magnesium AM DRAW Lab 03/06/25 05:00 Ordered Magnesium AM DRAW Lab 03/07/25 05:00 Ordered Magnesium AM DRAW Lab 03/08/25 05:00 Ordered Magnesium AM DRAW Lab 03/09/25 05:00 Ordered PTT [Partial Thromboplastin Time] Stat Lab 03/05/25 00:41 Completed Phosphorous AM DRAW Lab 03/06/25 05:00 Ordered Phosphorous AM DRAW Lab 03/07/25 05:00 Ordered Phosphorous AM DRAW Lab 03/08/25 05:00 Ordered Phosphorous AM DRAW Lab 03/09/25 05:00 Ordered Acetaminophen Tab [Tylenol Tab] Med 03/05/25 17:59 Hold 650 mg PO Q6H PRN Acetaminophen Tab [Tylenol Tab] Med 03/05/25 17:59 Hold 650 mg PO Q6H PRN DiphenhydrAMINE INJ [Benadryl Inj] Med 03/05/25 03:15 Discontinued 12.5 mg IVP X1 ONE HYDROcodone*/APAP 5/325 [[place] 5/325] Med 03/04/25 22:49 Discontinued 1 tab PO X1 ONE HYDROcodone/APAP 10/325 [[place] 10/325] Med 03/05/25 17:59 Hold 1 tab PO Q4HR PRN Heparin Inj Med 03/05/25 22:00 Active 5,000 unit SC Q8HR Metoclopramide Inj [Reglan Inj] Med 03/05/25 03:15 Discontinued 10 mg IVP X1 ONE Morphine Inj Med 03/05/25 11:30 Discontinued 4 mg IVP X1 ONE Morphine Inj Med 03/05/25 01:40 Discontinued 5 mg IVP X1 ONE Ondansetron Inj [Zofran Inj] Med 03/05/25 01:40 Discontinued 4 mg IV X1 ONE Ondansetron Inj [Zofran Inj] Med 03/05/25 11:30 Discontinued 4 mg IV X1 ONE Ondansetron Inj [Zofran Inj] Med 03/05/25 17:59 Active 4 mg IVP Q6H PRN Ondansetron Odt [Zofran Odt] Med 03/04/25 22:49 Discontinued 4 mg PO X1 ONE Pantoprazole Inj [Protonix Inj] Med 03/05/25 18:00 Active 40 mg IVP QDAY Piper/Tazo 3.375 gm Premix [Zosyn] Med 03/05/25 05:33 Discontinued 3.375 gm in 50 ml IV X1 Sodium Chloride 0.9% 1000 ml [Ns] 1,000 ml Med 03/05/25 11:30 Discontinued IV 150 mls/hr Sodium Chloride 0.9% 1000 ml [Ns] 1,000 ml Med 03/05/25 00:26 Discontinued IV 999 mls/hr Sodium Chloride 0.9% 1000 ml [Ns] 1,000 ml Med 03/05/25 11:30 Discontinued IV 999 mls/hr oxyCODONE/APAP 5/325 [Percocet 5/325] Med 03/05/25 17:59 Hold 1 tab PO Q6H PRN Code Status Routine Oth 03/05/25 17:59 Ordered Vital Signs Vital signs: Vital Signs Temperature 98 F 03/04/25 22:33 Pulse Rate 60 03/04/25 22:33 Respiratory Rate 18 03/04/25 22:33 Blood Pressure 135/82 H 03/04/25 22:33 Pulse Oximetry (%) 99 03/04/25 22:33 Oxygen Delivery Method Room Air 03/04/25 22:33 Discharge Plan Plan Patient Disposition: Admit Acute Care w/in Hospital Problem List Clinical Impression: Intractable abdominal pain, Cholelithiasis, Elevated transaminase level MDM Narrative MDM hospital course: I, Rach Galan, am scribing for and in the presence of Dr. Crockett. Patient was signed out from the second PA for having persistent epigastric pain and we discussed the case at great length and the surgeon Dr. Luna came saw the patient felt the patient could go home he had on my evaluation patient is still hurting so I assumed care at about noon time. Talk to Dr. Rodriguez because there is a discrepancy between the CT which said acute cholecystitis the ultrasound which said that gallbladder appeared normal with no wall edema. Dr. Rdoriguez recommended a second ultrasound. Because the transaminases were elevated I got a MRCP. MRCP was delayed but came back negative but that did reveal gallbladder wall edema and the second ultrasound confirmed acute cholecystitis after reevaluation with Dr. Rodriguez. Because of the persistent intractable abdominal pain and the gallbladder wall edema Dr Carranza surgeon was called and he states he will consult and the hospitalist was called and they will be admitting. Being for the labs shows a normal white count PT/INR electrolytes and kidney function were all normal transaminases were elevated of uncertain etiology and hepatitis panel came back negative. MRCP came back negative other than positive gallbladder wall edema and note the CT commented on some cyst or mass in the pelvis and a pelvic ultrasound revealed incidental cyst with no need for further follow-up and patient is asymptomatic in the pelvis clinically. Clinical Information Provided by patient Medical Records Reviewed [facility] Meds/Rx Considered, not Ordered None Labs/Rad/Tests considered, not Ordered None Chronic Illness/Social Conditions Add or document further as needed: No known PMHx, surgeries, daily medications, or known allergies. Lab Interpretation Labs: see narrative above Imaging Imaging interpretation: see narrative above Radiology reports / interpretation(s): Procedure(s): US gall bladder Accession Number(s): [id number] cc: Que Diaz MD; NO PRIMARY/FAMILY,PHYSICIAN; Candido Little PA-C~ Examination: Abdomen sonogram, Limited Date and time of exam: March 05, 2025 12 min 9 INDICATIONS: Epigastric pain beginning one day ago Technique: Real-time oro scale transabdominal sonographic images of the upper abdomen obtained. Findings: Multiple gallstones Normal gallbladder wall Normal common bile duct 0.3 cm Pancreatic head 3.2 cm Liver 16.8 cm fatty infiltration lobular contour Normal hepatopedal portal venous flow Patent IVC IMPRESSION: Cholelithiasis, primary hepatocellular disease Dictated By: Que Diaz MD Procedure(s): CT abdomen pelvis w con Accession Number(s): [id number] cc: Que Diaz MD; NO PRIMARY/FAMILY,PHYSICIAN; Candido Little Examination: CT abdomen with intravenous contrast CT pelvis with intravenous contrast 2-D coronal reconstructions 2-D sagittal reconstructions Date and time of exam:March 05, 2025, 0322 hours INDICATIONS: Epigastric pain and abdominal pain today, clinical diagnosis pancreatitis. CTDI: vol (mGy) 12 DLP: (mGycm) 600 Technique: Multiple axial sections of the abdomen and pelvis have been obtained. 64 slice high-resolution scanner used. 3 mm axial sections have been obtained, post intravenous injection 60 cc Isovue 370 2-D sagittal, coronal reconstructions obtained. Low dose protocols were performed. One or more of the following dose reduction techniques were used; automated exposure control, adjustment of the mA and/or KV according to patient size, use of iterative reconstruction technique. Findings: Fatty infiltration throughout the liver No focal liver or splenic lesions Gallbladder wall thickening No pancreatic edema No renal or ureteral calculi, no hydronephrosis Aorta normal size The appendix is mildly thickened but no definite periappendiceal inflammatory change No bowel obstruction Right pelvic 33 mm hypodense mass Contracted urinary bladder IMPRESSION: Acute cholecystitis The appendix is mildly thickened but no definite periappendiceal inflammatory change,, the appearance should be clinically correlated Recommend pelvic sonography to assess 33 mm hypodense mass right pelvis Dictated By: Que Diaz MD Procedure(s): US abdomen limited Accession Number(s): [id number] cc: Angel Crockett MD; Que Diaz MD; NO PRIMARY/FAMILY,PHYSICIAN~ Examination: Abdomen sonogram, Limited Date and time of exam: March 05, 2025 1244 hours INDICATIONS: Right upper abdominal pain epigastric pain nausea vomiting today Technique: Real-time oro scale transabdominal sonographic images of the upper abdomen obtained. Findings: Multiple gallstones Gallbladder wall 0.7 cm with edema Common bile duct 0.5 cm Pancreatic head 3.3 cm Liver 17.1 cm fatty infiltration no focal liver lesions Normal hepatopedal portal venous flow Patent IVC IMPRESSION: Acute calculus cholecystitis Dictated By: Que Diaz MD Procedure(s): US pelvic complete Accession Number(s): [id number] cc: Angel Crockett MD; Que Diaz MD; NO PRIMARY/FAMILY,PHYSICIAN~ Examination: Pelvic ultrasound, transabdominal, complete Technique: Transabdominal ultrasound of the pelvis performed using grayscale imaging Date and time of exam: March 05, 2025 1305 hours INDICATIONS: CT scan pelvis March 05, 2025 33 mm hypodense mass right pelvis FINDINGS: Uterus 7.0 cm endometrial stripe 0.2 cm No uterine mass or intrauterine gestation Right ovary 3.7 cm arterial flow, 32 x 24 x 27 mm simple right ovarian cyst Left ovary 4.9 cm arterial flow IMPRESSION: No uterine mass or intrauterine gestation Right ovarian simple cyst 32 x 24 x 27 mm Recommend 3-6 month follow-up pelvic sonography to document stability of mildly prominent left ovary Dictated By: Que Diaz MD Procedure(s): MR MRCP Accession Number(s): [id number] cc: Angel Crockett MD; Que Diaz MD; NO PRIMARY/FAMILY,PHYSICIAN~ MRI abdomen, without contrast. MRCP Date and time of exam: March 05, 2025 1431 hours INDICATIONS: Right upper abdominal pain epigastric pain nausea vomiting, intractable pain today with elevated transaminases Technique: Multiple axial and coronal images of the abdomen have been obtained with the Siemens 1.5T MRI scanner. Images obtained included T1 weighted transverse images, T2-weighted transverse images, T2-weighted transverse images fat-suppressed, T2 weighted haste fat suppressed transverse images, T1 weighted images, in and out of phase images, T2-weighted coronal images, breath hold, T2 weighted haze coronal images as well as T2 weighted coronal thick slab images, MRCP. Findings: Hepatomegaly 17 cm Gallstones Gallbladder wall shows mild edema The gallbladder is not distended Normal common hepatic common bile duct no stones No dilated pancreatic duct or peripancreatic edema No hydronephrosis No ascites Aorta normal size IMPRESSION: Cholelithiasis Mild gallbladder wall edema No common hepatic or common bile duct stones Dictated By: Que Diaz MD Medication Administration(s) Medication Administration History Acetaminophen (Acetaminophen 325 Mg Tablet) 650 mg PO Q6H PRN PRN Reason: PAIN SCALE 1-3 (mild Stop: 04/04/25 17:58 Acetaminophen (Acetaminophen 325 Mg Tablet) 650 mg PO Q6H PRN PRN Reason: Fever >100.4 Stop: 04/04/25 17:58 Hydrocodone Bitart/Acetaminophen (Hydrocodone/Apap 10/325 Tab) 1 tab PO Q4HR PRN PRN Reason: PAIN SCALE 7-10 (Severe Stop: 03/10/25 17:58 Fentanyl Citrate (Fentanyl Cit Inj 50 Mcg/Ml Amp 2ml) 25 mcg IVP Q5M PRN PRN Reason: PAIN SCALE 1-3 (mild Stop: 03/05/25 22:22 Heparin Sodium (Porcine) (Heparin Sod Inj 5000 Unit/Ml Vial) 5,000 unit SC Q8HR JAIRO Stop: 03/19/25 21:59 Hydromorphone HCl (Hydromorphone Inj 2 Mg/Ml Vial) 0.4 mg IVP Q5M PRN PRN Reason: PAIN SCALE 7-10 (Severe Stop: 03/05/25 22:23 Piperacillin/Tazobactam/Dextrose (Zosyn) 3.375 gm in 50 mls @ 12.5 mls/hr IV Q8HR [facility]; Protocol Stop: 03/12/25 18:14 Last Admin: 03/05/25 18:46 Dose: 12.5 mls/hr Documented By: SHAKA Acetaminophen (Ofirmev Inj) 1,000 mg in 100 mls @ 250 mls/hr IV Q6HR [facility] Stop: 03/06/25 12:23 Morphine Sulfate (Morphine Sulf Inj 10 Mg/Ml Vial) 3 mg IVP Q5M PRN PRN Reason: PAIN SCALE 4-6 (Moderate Stop: 03/05/25 22:23 Ondansetron HCl (Ondansetron Inj 2 Mg/Ml Inj 2 Ml) 4 mg IVP Q6H PRN; Protocol PRN Reason: NAUSEA OR VOMITING Stop: 04/04/25 17:58 Oxycodone/Acetaminophen (Oxycodone/Apap 5/325 Tablet) 1 tab PO Q6H PRN PRN Reason: PAIN SCALE 4-6 (Moderate Stop: 03/10/25 17:58 Pantoprazole Sodium (Pantoprazole Inj 40 Mg Vial) 40 mg IVP QDAY [facility] Stop: 04/04/25 17:59 Last Admin: 03/05/25 18:46 Dose: 40 mg Documented By: SHAKA Discontinued Medications Hydrocodone Bitart/Acetaminophen (Hydrocodone/Apap 5/325 Tablet) 1 tab PO X1 ONE Stop: 03/04/25 22:50 Last Admin: 03/04/25 23:31 Dose: 1 tab Documented By: Bupivacaine HCl (Bupivacaine Mpf 0.5% 30 Ml Vial) Confirm Administered Dose 30 ml .ROUTE .STK-MED ONE Stop: 03/05/25 20:31 Diphenhydramine HCl (Diphenhydramine Inj 50 Mg/Ml Vial) 12.5 mg IVP X1 ONE Stop: 03/05/25 03:16 Last Admin: 03/05/25 04:55 Dose: Not Given Documented By: CB Non-Admin Reason: Patient Refused Fentanyl Citrate (Fentanyl Cit Inj 50 Mcg/Ml Amp 2ml) Confirm Administered Dose 100 mcg .ROUTE .STK-MED ONE Stop: 03/05/25 20:25 Sodium Chloride (Ns) 1,000 mls @ 999 mls/hr IV .Q1H1M ONE Stop: 03/05/25 01:26 Last Infusion: 03/05/25 02:47 Dose: Infused Documented By: Admin: 03/05/25 01:44 Dose: 999 mls/hr Documented By: WILNER Piperacillin/Tazobactam/Dextrose (Zosyn) 3.375 gm in 50 mls @ 100 mls/hr IV X1 ONE Stop: 03/05/25 06:02 Last Infusion: 03/05/25 06:22 Dose: Infused Documented By: Admin: 03/05/25 05:47 Dose: 100 mls/hr Documented By: WILNER Sodium Chloride (Ns) 1,000 mls @ 150 mls/hr IV .Q6H40M ONE Stop: 03/05/25 18:09 Last Admin: 03/05/25 13:44 Dose: 150 mls/hr Documented By: CRISTIANE Sodium Chloride (Ns) 1,000 mls @ 999 mls/hr IV .Q1H1M ONE Stop: 03/05/25 12:30 Last Infusion: 03/05/25 13:45 Dose: Infused Documented By: Admin: 03/05/25 11:56 Dose: 999 mls/hr Documented By: CRISTIANE Metoclopramide HCl (Metoclopramide Inj 5 Mg/Ml Vial 2 Ml) 10 mg IVP X1 ONE; Protocol Stop: 03/05/25 03:16 Last Admin: 03/05/25 04:55 Dose: Not Given Documented By: CB Non-Admin Reason: Patient Refused Midazolam HCl (Midazolam Inj 1 Mg/Ml Vial 2 Ml) Confirm Administered Dose 2 mg .ROUTE .STK-MED ONE Stop: 03/05/25 20:25 Morphine Sulfate (Morphine Sulf Inj 10 Mg/Ml Vial) 5 mg IVP X1 ONE Stop: 03/05/25 01:41 Last Admin: 03/05/25 01:49 Dose: 5 mg Documented By: CB Morphine Sulfate (Morphine Sulf Inj 10 Mg/Ml Vial) 4 mg IVP X1 ONE Stop: 03/05/25 11:31 Last Admin: 03/05/25 11:56 Dose: 4 mg Documented By: VG Ondansetron HCl (Ondansetron Odt 4 Mg Tabrap) 4 mg PO X1 ONE; Protocol Stop: 03/04/25 22:50 Last Admin: 03/04/25 23:31 Dose: 4 mg Documented By: Ondansetron HCl (Ondansetron Inj 2 Mg/Ml Inj 2 Ml) 4 mg IV X1 ONE; Protocol Stop: 03/05/25 01:41 Last Admin: 03/05/25 01:50 Dose: 4 mg Documented By: CB Ondansetron HCl (Ondansetron Inj 2 Mg/Ml Inj 2 Ml) 4 mg IV X1 ONE; Protocol Stop: 03/05/25 11:31 Last Admin: 03/05/25 11:56 Dose: 4 mg Documented By: VG Ondansetron HCl (Ondansetron Inj 2 Mg/Ml Inj 2 Ml) 4 mg IVP X1 ONE Stop: 03/05/25 20:23 Propofol (Propofol Inj 10 Mg/Ml Vial 20 Ml) Confirm Administered Dose 200 mg IV .STK-MED ONE Stop: 03/05/25 20:25 Sugammadex Sodium (Sugammadex Inj 100 Mg/Ml 2ml Vial) Confirm Administered Dose 200 mg .ROUTE .STK-MED ONE Stop: 03/05/25 20:26 Diagnosis Differential diagnosis: Abdominal pain, Cholelithiasis Most likely dx, and/or detailed dx discussion: Intractable abdominal pain Cholelithiasis Elevated transaminase level Dispositon Disposition: Admit
[2025-03-05] MEDS: MORPHINE SULF INJ 10 MG/ML VIAL 4 MG IVP (11:56)
[2025-03-05 12:10] LABS: Cholesterol 144 mg/dL (132-200); HDL Cholesterol 48 mg/dL (40-60); LDL Cholesterol,Calculated 74 mg/dL (0-130); Triglycerides 108 mg/dL (30-150)
--- NOTE | 2025-03-05 12:27 | XR_ITS ---
Examination: Pelvic ultrasound, transabdominal, complete Technique: Transabdominal ultrasound of the pelvis performed using grayscale imaging Date and time of exam: March 05, 2025 1305 hours INDICATIONS: CT scan pelvis March 05, 2025 33 mm hypodense mass right pelvis FINDINGS: Uterus 7.0 cm endometrial stripe 0.2 cm No uterine mass or intrauterine gestation Right ovary 3.7 cm arterial flow, 32 x 24 x 27 mm simple right ovarian cyst Left ovary 4.9 cm arterial flow IMPRESSION: No uterine mass or intrauterine gestation Right ovarian simple cyst 32 x 24 x 27 mm Recommend 3-6 month follow-up pelvic sonography to document stability of mildly prominent left ovary
[2025-03-05 12:52] LABS: Hepatitis A Antibody IgM Non Reactive (Non React); Hepatitis B Core Antibody IgM Non Reactive (Non React); Hepatitis B Surface Antigen Non Reactive (Non React); Hepatitis C Antibody Non Reactive (Non React)
[2025-03-05] MEDS: SODIUM CHLORIDE 0.9% 1000 ML 1,000 ML 150 ML IV (13:44)
--- NOTE | 2025-03-05 14:31 | PC.NURSE ---
PT TAKEN TO MRI.
--- NOTE | 2025-03-05 16:48 | PC.NURSE ---
Hand off report received from Ely PORTER. Pt was seen by this nurse. Pt denies any pain at this time, stated that she just received medication not too loing ago so she is pain free. VSS. 20 G right forearm infusing NS @150 as ordered. Call light within reach, lights dimmed and curtain closed for privacy.
--- NOTE | 2025-03-05 17:04 | PC.NURSE ---
Dr. Baca went to speak with patient regarding poc. Dr. Gentile to evaluate patient regarding possible surgical intervention. Pending on patient's recommendations will wait on admitting patient.
--- NOTE | 2025-03-05 18:29 | ESHP_ITS ---
<Statement entered by Harry Reyes MD - 03/06/25 13:29> 29 y/o female patient with medical history of gallstone came for worsening abdominal pain. Patient was found to have elevated LFT, MRCP and CT showed calculus cholecystitis with normal CBD. General surgeon Dr. Carranza consulted, patient will most likely undergo cholecystectomy. I discussed with and supervised the biology internship physician involved in the care of this patient. Patient assessment and plan was discussed with entire medicine team, including my attending. I agree with the assessment and plan as documented by biology internship doctor. Patient care was discussed with my attending physician Dr. Toy Reyes, PGY-2 Documentation for date of: 03/05/25 HPI History of Present Illness History of present illness: This is a 29-year-old female with PMHx of gallstone presents to ED with acute onset abdominal pain. Pain started last night at 7 PM, 10 minutes after having a meal of vegetables, dull in nature, rated 8 out of 10, radiates bilaterally and to the back. Associated with subjective fever and 3 episode of emesis. She's had similar symptoms in the past, around 3 times this year, also believed to be related to food intake. She has a known history of gallstones, but previously abdominal pain is much milder, and usually resolved within an hour. Denies headaches, fever, fall or trauma, chest pain, shortness of breath, chills, abnormal weight changes, diarrhea or constipation, bloody stool, dysuria, hematuria, urinary urgency or frequency. States she does not take medication, including TYLENOL or IBUPROFEN. She didn't try any bnbz-[id number] pain meds for the pain. Denies taking herbal supplements except for chamomile tea for the pain. Denies current or previous alcohol, drug or tobacco use. Denies personal history of liver disease or cancer. Family history significant for dad with diabetes and liver disease. She has no previous surgical history, she is , had 1 full-term vaginal delivery. No abdominal surgeries in the past. ED COURSE: * Tmax 98.9, BP 135/82, HR 60, satting 91% on room air. * WBC 10.6, with mild left shift, normal platelets and Hgb. * Normal coag studies. * CMP remarkable for AST 944, ALT 623, ALP 83. * Beta-hCG negative. U tox negative. No UA. * MRCP showed cholelithiasis, mild gallbladder wall edema, no hepatic or common bile duct stone. * Bladder ultrasound showed cholelithiasis, primary hepatocellular disease. * CT abdomen showed acute cholecystitis, mildly thickened appendix with no definite periappendicular laboratory changes, 3 mm hypodense mass in the right pelvis. * Abdominal ultrasound showed acute calculus cholecystitis. * Pelvic ultrasound showed right ovarian simple cyst measuring 32, times 24 x 27 mm, no uterine mass or intrauterine gestation. ED gave fluid NS bolus, started NS at 150 cc/H, ZOSYN x 1, and pain control. Patient admitted for abdominal pain workup. PMHx: As above. PSHx: None. MEDS: None. ALLERGIES: NKA. FHx: Father with diabetes and liver disease. SH: Denies alcohol, tobacco or drug use. Review of Systems Review of Systems Narrative Review of Systems: 12 point system review negative except for above mentioned. Exam Vital Signs Temp Pulse Resp BP Pulse Ox O2 Del Method 98.9 F 56 L 19 130/82 100 Room Air 03/05/25 17:00 03/05/25 17:03/05/25 17:00 03/05/25 17:03/05/25 17:03/05/25 17:00 Narrative Exam GENERAL * Obese, otherwise normal appearing female, in NAD. HEENT * NCAT.?KHUSHBOO. Oral mucosa is moist. Patent Nares NECK * Supple, nontender, no thyromegaly, no meningismus, no JVD, no step offs CHEST * RRR, no m/g/r * CTAB, no w/r/r. Symmetrical chest rise. No intercostal subcostal retraction * Atraumatic, nontender, no crepitus, symmetrical expansion. ABDOMEN * Soft, distended, diffusely tender worse in the epigastrium. * Bowel sounds presents EXTREMITIES * No edema/cyanosis.? SKIN * Warm and dry, no jaundice/rashes. NEUROMUSCULAR * No lumbar or midline, no CVA, no paraspinal muscle spasm or tenderness. * Moves all 4 extremities well, with full ROM and good CSM. * LENTZ x4, CN II-XII grossly intact. * No focal neurologic deficits. PSYCHIATRY * Normal mood and affect, cooperative, no SI or HI or hallucinations. Results: Labs 03/06/25 04:55 03/06/25 04:55 Labs: Short CBC 03/04/25 Range/Units 23:33 WBC 10.6 (3.6-11.0) Thou/mm3 Hgb 13.4 (12.0-16.0) g/dL Hct 39.4 (36.0-46.0) % Plt Count 355 (140-440) Thou/mm3 BMP 03/04/25 23:33 Sodium 144 Potassium 4.1 Chloride 105 Carbon Dioxide 25.9 BUN 11 Creatinine 0.6 Glucose 131 H Calcium 9.0 Liver Function 03/04/25 Range/Units 23:33 Total Bilirubin 0.8 (0.3-1.2) mg/dL AST 944 H* (0-34) U/L ALT 623 H* (10-49) U/L Alkaline Phosphatase 83 (46-116) U/L Albumin 4.6 (3.5-5.0) gm/dL Quality Measures Quality Measures none Medications Home Medications and Allergies Allergies Allergy/AdvReac Type Severity Reaction Status Date / Time No Known Allergies Allergy Verified 03/04/25 20:43 Visit Medications Acetaminophen (Acetaminophen 325 Mg Tablet) 650 mg PO Q6H PRN PRN Reason: PAIN SCALE 1-3 (mild Stop: 04/04/25 17:58 Acetaminophen (Acetaminophen 325 Mg Tablet) 650 mg PO Q6H PRN PRN Reason: Fever >100.4 Stop: 04/04/25 17:58 Hydrocodone Bitart/Acetaminophen (Hydrocodone/Apap 10/325 Tab) 1 tab PO Q4HR PRN PRN Reason: PAIN SCALE 7-10 (Severe Stop: 03/10/25 17:58 Heparin Sodium (Porcine) (Heparin Sod Inj 5000 Unit/Ml Vial) 5,000 unit SC Q8HR JAIRO Stop: 03/19/25 21:59 Piperacillin/Tazobactam/Dextrose (Zosyn) 3.375 gm in 50 mls @ 12.5 mls/hr IV Q8HR JAIRO; Protocol Stop: 03/12/25 18:14 Ondansetron HCl (Ondansetron Inj 2 Mg/Ml Inj 2 Ml) 4 mg IVP Q6H PRN; Protocol PRN Reason: NAUSEA OR VOMITING Stop: 04/04/25 17:58 Oxycodone/Acetaminophen (Oxycodone/Apap 5/325 Tablet) 1 tab PO Q6H PRN PRN Reason: PAIN SCALE 4-6 (Moderate Stop: 03/10/25 17:58 Pantoprazole Sodium (Pantoprazole Inj 40 Mg Vial) 40 mg IVP QDAY JAIRO Stop: 04/04/25 17:59 Discontinued Medications Hydrocodone Bitart/Acetaminophen (Hydrocodone/Apap 5/325 Tablet) 1 tab PO X1 ONE Stop: 03/04/25 22:50 Last Admin: 03/04/25 23:31 Dose: 1 tab Diphenhydramine HCl (Diphenhydramine Inj 50 Mg/Ml Vial) 12.5 mg IVP X1 ONE Stop: 03/05/25 03:16 Last Admin: 03/05/25 04:55 Dose: Not Given Sodium Chloride (Ns) 1,000 mls @ 999 mls/hr IV .Q1H1M ONE Stop: 03/05/25 01:26 Last Infusion: 03/05/25 02:47 Dose: Infused Piperacillin/Tazobactam/Dextrose (Zosyn) 3.375 gm in 50 mls @ 100 mls/hr IV X1 ONE Stop: 03/05/25 06:02 Last Infusion: 03/05/25 06:22 Dose: Infused Sodium Chloride (Ns) 1,000 mls @ 150 mls/hr IV .Q6H40M ONE Stop: 03/05/25 18:09 Last Admin: 03/05/25 13:44 Dose: 150 mls/hr Sodium Chloride (Ns) 1,000 mls @ 999 mls/hr IV .Q1H1M ONE Stop: 03/05/25 12:30 Last Infusion: 03/05/25 13:45 Dose: Infused Metoclopramide HCl (Metoclopramide Inj 5 Mg/Ml Vial 2 Ml) 10 mg IVP X1 ONE; Protocol Stop: 03/05/25 03:16 Last Admin: 03/05/25 04:55 Dose: Not Given Morphine Sulfate (Morphine Sulf Inj 10 Mg/Ml Vial) 5 mg IVP X1 ONE Stop: 03/05/25 01:41 Last Admin: 03/05/25 01:49 Dose: 5 mg Morphine Sulfate (Morphine Sulf Inj 10 Mg/Ml Vial) 4 mg IVP X1 ONE Stop: 03/05/25 11:31 Last Admin: 03/05/25 11:56 Dose: 4 mg Ondansetron HCl (Ondansetron Odt 4 Mg Tabrap) 4 mg PO X1 ONE; Protocol Stop: 03/04/25 22:50 Last Admin: 03/04/25 23:31 Dose: 4 mg Ondansetron HCl (Ondansetron Inj 2 Mg/Ml Inj 2 Ml) 4 mg IV X1 ONE; Protocol Stop: 03/05/25 01:41 Last Admin: 03/05/25 01:50 Dose: 4 mg Ondansetron HCl (Ondansetron Inj 2 Mg/Ml Inj 2 Ml) 4 mg IV X1 ONE; Protocol Stop: 03/05/25 11:31 Last Admin: 03/05/25 11:56 Dose: 4 mg Assessment & Plan Plan This is a 29-year-old female with PMHx of gallstone presents to ED with acute onset abdominal pain. Admitted for acute calculus cholecystitis. Appreciate recommendations from GI and general surgery team. Acute calculus cholecystitis Acute transaminitis Presenting with acute episode of abdominal pain, appears to be epigastric, radiating bilaterally into the back, related to meal consumption, associated with emesis. Vitals stable otherwise, Tmax 98.9, no leukocytosis, transaminitis with AST 944, ALT 623, ALP 83. Beta-hCG negative. Lipase negative. U tox negative. No UA. Has a known history of gallstones. Denies history of alcohol, drug or tobacco use. Positive Crawford sign on exam, abdominal tenderness present throughout, worse in the epigastrium. No previous surgeries, last bowel movement was yesterday and was normal. MRCP showed cholelithiasis, mild gallbladder wall edema, no hepatic or common bile duct stone. Bladder ultrasound showed cholelithiasis, primary hepatocellular disease. CT abdomen showed acute cholecystitis, mildly thickened appendix with no definite periappendicular laboratory changes, 3 mm hypodense mass in the right pelvis. Abdominal ultrasound showed acute calculus cholecystitis. Pelvic ultrasound showed right ovarian simple cyst measuring 32, times 24 x 27 mm, no uterine mass or intrauterine gestation. Adequately resuscitated in the ED. ? Started ZOSYN (03/05 to present) ? Pain control ? Pending UA ? Pending hepatitis panel ? Pending GGT, TYLENOL level, JO-ANN, ANTIMITOCHONDRIAL, CMV, EBV, iron panel ? Pending general surgery recommendations ? Pending GI recommendations Health maintenance Diet: NPO GI prophylaxis: PROTONIX DVT prophylaxis: HEPARIN subcu Antibiotics: ZOSYN CODE STATUS: Full code Disposition: Pending GI recommendations. Case was discussed with attending physician and senior resident. Sergey Rosenthal DO PGYI Attending Provider Attestation/Addendum Gauri Koehler DO, attest that I was physically present for the steward portions of the service and evaluated the patient with the resident and I reviewed and discussed the case with the resident and agree with the resident's findings and plans of care as documented above Patient is a 29-year-old female with past medical history of gallstones who presents with right upper quadrant pain that began last night at about 7 PM. Patient states pain is worse after eating. Patient endorses having nausea and vomiting, but denies any fevers. She does endorse vomiting. Patient is noted to have elevated LFTs upon admission. However, patient denies taking any vitamins or supplements, Tylenol for pain or any other rplc-jho-edubcyj medications. She states that her mother has fatty liver disease and her father has diabetes. Patient does have a positive Crawford sign on exam. She was found to have cholecystitis on MRCP. Will admit to [facility] for further workup and medical management of acute transaminitis and acute cholecystitis. Surgery was called from ED recommending patient to be admitted. Will do further studies to evaluate cause of elevated LFTs.
[2025-03-05 18:34] LABS: Basophils % (Auto) 0 % (0-2.5); Eosinophils # (Auto) 0.1 Thou/mm3 (0.0-0.5); Eosinophils % (Auto) 1 % (0-10); Hematocrit 39.5 % (36.0-46.0); Hemoglobin 13.3 g/dL (12.0-16.0); Immature Granulocytes % (Auto) 0 % (0-0); Immature Granulocytes Auto 0.02 Thou/mm3 (0.00-0.00); Lymphocytes # (Auto) 1.6 Thou/mm3 (1.0-4.8); Lymphocytes % (Auto) 25 % (10-50); Mean Corpuscular HGB Conc 33.7 g/dl (31.0-37.0); Mean Corpuscular Hemoglobin 30.9 pg (25.0-35.0); Mean Corpuscular Volume 92 fL (80-100); Monocytes # (Auto) 0.4 Thou/mm3 (0.0-0.8); Monocytes % (Auto) 7 % (0-12); Neutrophils # (Auto) 4.2 Thou/mm3 (1.8-7.7); Neutrophils % (Auto) 67 % (37-80); Nucleated Red Blood Cell % 0 /100 WBC (0); Platelet Count 349 Thou/mm3 (140-440); RDW Standard Deviation 42.9 fL (36.4-46.3); Red Blood Count 4.31 Miln/mm3 (4.00-5.20); White Blood Count 6.2 Thou/mm3 (3.6-11.0)
[2025-03-05] MEDS: PANTOPRAZOLE INJ 40 MG VIAL IVP (18:46)
[2025-03-05 18:58] LABS: Acetaminophen < 2.0 mcg/mL (10.0-20.0); Alanine Aminotransferase 778 U/L (10-49); Albumin, Serum 4.1 gm/dL (3.5-5.0); Albumin/Globulin Ratio 1.8 (1.2-2.2); Alkaline Phosphatase 87 U/L (46-116); Anion Gap 11 (7-16); BUN/Creatinine Ratio 10 Ratio (12-20); Bilirubin,Total 1.1 mg/dL (0.3-1.2); Blood Urea Nitrogen 6 mg/dL (9-23); Calcium 8.5 mg/dL (8.3-10.6); Calcium (Corrected) 8.5 mg/dL (8.5-10.1); Carbon Dioxide 24.7 mMol/L (20.0-31.0); Chloride 107 mMol/L (98-107); Creatinine (Component) 0.6 mg/dL (0.6-1.3); Estimated Creatinine Clearance 122.4 mL/min (>60); Globulin 2.3 gm/dL (2.3-3.5); Glucose 91 mg/dL (74-106); Osmolality,Calculated 282 (275-295); Potassium 4.4 mMol/L (3.4-5.1); Sodium 143 mMol/L (136-145); Total Protein 6.4 gm/dL (5.7-8.2); eGFR > 60 See Note
--- NOTE | 2025-03-05 19:39 | PC.NURSE ---
report given floor-rabia Moreno
--- NOTE | 2025-03-05 19:55 | PD.SURCONS ---
HPI Consult details Consult date: 03/05/25 Reason for consultation narrative: Right upper quadrant abdominal pain with nausea and vomiting History of present illness: 29-year-old female presented to the emergency department with acute onset of abdominal pain. Her pain is in epigastric and right upper quadrant radiating to her back. She has had multiple episodes of nausea and vomiting and has not been able to eat or tolerate any food. Her CBC was unremarkable. She had normal total bilirubin, however her transaminases are elevated. MRCP did not show evidence of CBD stones. Abdominal ultrasound revealed multiple gallstones with gallbladder wall thickening and edema, CT scan revealed gallbladder wall thickening. Review of Systems Constitutional Constitutional: Denies chills, Denies fever(s) and Denies headache(s) ENT Ears, Nose, Mouth, and Throat: Denies headache(s) Cardiovascular Cardiovascular: Denies chest pain Respiratory Respiratory: Denies cough Gastrointestinal Gastrointestinal: Reports abdominal pain, Reports nausea and Reports vomiting Genitourinary Genitourinary: Denies difficulty voiding Musculoskeletal Musculoskeletal: Reports back pain Neurologic Neurologic: Denies headache(s) Hematologic/Lymphatic Hematologic/Lymphatic: Denies easy bleeding and Denies easy bruising Past Medical History Surgical History OTHER SURGICAL HX: D&C for ectopic Social History SMOKING STATUS: Never smoker SUBSTANCE USE: does not use ALCOHOL: Never Meds Home Medications and Allergies Allergies Allergy/AdvReac Type Severity Reaction Status Date / Time No Known Allergies Allergy Verified 03/04/25 20:43 Exam Vital Signs Temp Pulse Resp BP Pulse Ox O2 Del Method 98.9 F 56 L 19 130/82 100 Room Air 03/05/25 17:00 03/05/25 17:00 03/05/25 17:03/05/25 17:03/05/25 17:03/05/25 17:00 Constitutional Constitutional: no acute distress Routine HEENT Exam Eye: Present PERRL (Anicteric sclera) Routine Abdominal Exam Abdominal: Present soft, normoactive bowel sounds and tenderness (Right upper quadrant tenderness to palpation with guarding, positive Crawford sign. She does not have right lower quadrant tenderness); Absent distended Results Results: Laboratory Laboratory results: results reviewed Results: Imaging Imaging narrative: Abdominal ultrasound, CT scan of abdomen and pelvis and MRCP images reviewed, radiologist interpretation noted Assessment & Plan Problem List (1) Elevated transaminase level: Status: Acute (2) Acute calculous cholecystitis: Status: Acute Plan Keep patient n.p.o. with IV fluids. Will plan for laparoscopic possible open cholecystectomy with cholangiogram. Risks include but not limited to infection, bleeding, injury to bowel, liver, stomach, bile duct, retained stone, bile leak, abdominal sepsis and or abdominal abscess, need for further procedure and or operation, pneumonia and blood clot discussed with the patient. Benefits and alternatives explained to her, all her questions answered, she agreed and consented to proceed with the operation.
--- NOTE | 2025-03-05 20:19 | XR_ITS ---
Examination: Operative cholangiogram TECHNIQUE: AP abdomen single view Examination time: March 05, 2025 2113 hours INDICATIONS: Postop laparoscopic cholecystectomy. FINDINGS: Normal size, hepatic duct, no common hepatic or common bile duct stones no obstruction, contrast in the duodenum IMPRESSION: No common bile duct stones or obstruction
--- NOTE | 2025-03-05 20:37 | PC.NURSE ---
Report given to Vadim PORTER pt taken to surgery
[2025-03-05 21:17] LABS: LDH (Lactate Dehydrogenase) 435 U/L (120-246)
[2025-03-05 21:30] LABS: Iron 292 mcg/dL (50-170); Percent Iron Saturation 86 % (20-55); Total Iron Binding Capacity 337 mcg/dL (250-425); Unsaturated Iron Binding 45 (225-295)
--- NOTE | 2025-03-05 21:40 | ESOP_ITS ---
Date of Procedure 03/05/25 Pre Op Diagnosis Cholelithiasis with acute cholecystitis Elevated transaminases Post Op Diagnosis Cholelithiasis with acute cholecystitis Elevated transaminases Procedure Laparoscopic cholecystectomy with intraoperative cholangiogram Findings Distended gallbladder with multiple gallstones, with gallbladder wall thickening and extensive pericholecystic edema. Cholangiogram did not show CBD stones Procedure Description Patient was brought into the operating room in supine position. After administration of general endotracheal anesthesia abdomen was prepped and draped in standard surgical manner. A Veress needle was inserted through the umbilicus and pneumoperitoneum was obtained up to 15 mmHg. The Veress needle was then removed, a 5 mm infraumbilical incision was made and the 5mm trocar was inserted. Laparoscopic camera was placed. Under direct visualization a laparoscopic camera a 10 mm trocar was placed in subxiphoid and two 5 mm trocars placed in right upper quadrant. The gallbladder was identified and was noted to be moderately distended with multiple gallstones, gallbladder wall thickening and extensive pericholecystic edema. It was retracted cephalad and laterally. Dissection started near the infundibulum of gallbladder where cystic duct and gallbladder junction clearly identified. The cystic duct was circumferentially dissected off the peritoneum and surrounding inflammatory tissue. The critical view of safety was clearly demonstrated. An Endo Clip placed near the cystic d uct and gallbladder junction and a small ductotomy was performed. Cholangiogram catheter was placed through the ductotomy site and contrast was injected. Cholangiogram x-ray was obtained and revealed filling of contrast into the duodenum without obvious CBD stones. Cholangiogram catheter was removed and the cystic duct was divided between 2 endoclips proximally and one distally. The cystic artery was then divided between 2 endoclips proximally and 1 distally. The gallbladder was then from the liver bed using electrocautery. The gallbladder was then placed inside an Endo Catch and removed from the abdomen utilizing subxiphoid trocar site. The area was copiously and thoroughly washed and irrigated, all the fluid was suctioned and the suction fluid returned clear. Hemostasis achieved using electrocautery, also topical hemostatic agent using snow Surgicel placed at the gallbladder fossa to further assure hemostasis. Endoclips noted be in place and intact without any bleeding or any leakage. Hemostasis was adequate and satisfactory. The subxiphoid trocar sites fascial defect was closed with 0 Vicryl using Endo Closure device. Instruments and trocars removed, pneumoperitoneum was evacuated and the incisions closed with 4- 0 Monocryl in subcuticular fashion. Instrument needle and sponge counts were all reported to be correct X2. Patient tolerated the procedure well, was extubated, breathing spontaneously and without difficulty and was transferred to postanesthesia care in stable condition. Anesthesia GETA and local Pathology / specimen Other (Gallbladder and contents) Estimated Blood Loss 25 Condition Stable Disposition PACU Surgeon Micah Carranza MD Surgical Staff Operation Date: 03/05/25 21:00 Case Staff Anesthesiologist: Seth Peace RN First Assistant: Paul Stephens
--- NOTE | 2025-03-05 21:43 | SUR.PHASEI ---
received pt and report from GERMAN Fierro and Dr. Peace. pt arousable to tactile stimulation, vss, dermabond dressing x4 to abd, CDI. IV x1 in place, no redness or infiltration.
--- NOTE | 2025-03-05 22:15 | SUR.PHASEI ---
pt recoverying well, vss, pt is calm, no distress noted. dressing remains CDI. IV remains free of redness and no s/s of infiltration. pt denies any pain at this time. Report given to GERMAN Moreno.
[2025-03-05] MEDS: ACETAMINOPHEN IVPB 1,000 MG/100 ML VIAL 250 MG IV (22:36)
[2025-03-05] MEDS: MORPHINE SULF INJ 10 MG/ML VIAL 3 MG IVP (23:21)
[2025-03-05] MEDS: KCL 20 mEq/L in D5-1/2NS 20 MEQ/1,000 ML BAG 75 MEQ IV (23:21)
[2025-03-06] VITALS (8 sets, daily range): BP systolic 113–140; BP diastolic 65–83; PULSE 50–72; RESP 16–98; TEMP 36.1–37; O2SAT 93–99
[2025-03-06 03:56] LABS: Collection Type, Urine Clean Catch
[2025-03-06] MEDS: HYDROcodone/APAP 10/325 TAB PO ×2 (04:01→09:10)
[2025-03-06 04:05] LABS: Bilirubin,Urine Negative (Negative); Blood,Urine Negative (Negative); Clarity,Urine Clear (Clear/Hazy); Color,Urine Lt-Yellow (Lt Yel-Yel); Glucose, Urine Negative (Negative); Ketones,Urine 3+ (Negative); Leukocyte Esterase,Urine Positive (Negative); Nitrite,Urine Negative (Negative); PH,Urine 5.5 (5.0-7.0); Protein,Urine Negative (Neg - Trace); RBC,Urine 7 /hpf (0-3); Squamous Epithelial Cell,Urine 9 /hpf (0-5); Urobilinogen,Urine Negative mg/dL (0.0-1.0); WBC,Urine 7 /hpf (0-5)
[2025-03-06 05:57] LABS: Basophils % (Auto) 0 % (0-2.5); Eosinophils % (Auto) 0 % (0-10); Hematocrit 38.8 % (36.0-46.0); Hemoglobin 13.5 g/dL (12.0-16.0); Immature Granulocytes % (Auto) 0 % (0-0); Immature Granulocytes Auto 0.02 Thou/mm3 (0.00-0.00); Lymphocytes # (Auto) 0.6 Thou/mm3 (1.0-4.8); Lymphocytes % (Auto) 8 % (10-50); Mean Corpuscular HGB Conc 34.8 g/dl (31.0-37.0); Mean Corpuscular Volume 89 fL (80-100); Monocytes # (Auto) 0.1 Thou/mm3 (0.0-0.8); Monocytes % (Auto) 1 % (0-12); Neutrophils # (Auto) 7.2 Thou/mm3 (1.8-7.7); Neutrophils % (Auto) 91 % (37-80); Nucleated Red Blood Cell % 0 /100 WBC (0); Platelet Count 349 Thou/mm3 (140-440); RDW Standard Deviation 42.5 fL (36.4-46.3); Red Blood Count 4.36 Miln/mm3 (4.00-5.20); White Blood Count 7.9 Thou/mm3 (3.6-11.0)
[2025-03-06] MEDS: ACETAMINOPHEN IVPB 1,000 MG/100 ML VIAL 250 MG IV ×2 (06:14→11:50)
[2025-03-06] MEDS: PIPER/TAZO 3.375 GM PREMIX 3.375 GM/50 ML BAG IV ×3 (06:14→21:21)
[2025-03-06 06:31] LABS: Alanine Aminotransferase 723 U/L (10-49); Albumin, Serum 4.5 gm/dL (3.5-5.0); Alkaline Phosphatase 88 U/L (46-116); Anion Gap 13 (7-16); BUN/Creatinine Ratio 10 Ratio (12-20); Bilirubin,Total 1.2 mg/dL (0.3-1.2); Blood Urea Nitrogen 6 mg/dL (9-23); Carbon Dioxide 21.4 mMol/L (20.0-31.0); Chloride 101 mMol/L (98-107); Creatinine (Component) 0.6 mg/dL (0.6-1.3); Estimated Creatinine Clearance 124.2 mL/min (>60); Globulin 2.3 gm/dL (2.3-3.5); Glucose 178 mg/dL (74-106); Osmolality,Calculated 271 (275-295); Phosphorous 3.1 mg/dL (2.4-5.1); Potassium 4.1 mMol/L (3.4-5.1); Sodium 135 mMol/L (136-145); Total Protein 6.8 gm/dL (5.7-8.2); eGFR > 60 See Note
[2025-03-06] MEDS: PANTOPRAZOLE INJ 40 MG VIAL IVP (09:10)
[2025-03-06] MEDS: DOCUSATE SOD 100 MG CAPSULE PO ×2 (09:10→21:19)
[2025-03-06] MEDS: MORPHINE SULF INJ 10 MG/ML VIAL 3 MG IVP (11:49)
--- NOTE | 2025-03-06 14:23 | PD.SURPROG ---
Documentation for date of: 03/06/25 Subjective Subjective Narrative: Patient is seen and examined. Her pain is improving. She is tolerating diet without nausea or vomiting Exam Vital Signs Temp Pulse Resp BP Pulse Ox O2 Del Method O2 Flow Rate 97.2 F 72 19 113/65 93 L Room Air 4 03/06/25 11:54 03/06/25 11:54 03/06/25 11:54 03/06/25 11:54 03/06/25 11:54 03/06/25 11:54 03/05/25 22:00 Constitutional Constitutional: no acute distress Routine Abdominal Exam Comments: Abdomen is soft and nondistended. Incisions are clean, dry and intact Assessment & Plan Assessment Additional comments: Postop day #1 status post laparoscopic cholecystectomy with cholangiogram Plan Clinically improving. May discharge home from surgical standpoint. Follow-up with Dr Carranza in 2 weeks. Follow-up with primary care physician to repeat liver enzymes in 2 weeks Procedures Procedures Laparoscopic cholecystectomy with intraoperative cholangiogram
--- NOTE | 2025-03-06 15:01 | PC.SS ---
Shira Francis is 29 year old female admitted to [facility] for acute Cholecystitis. SS conducted bedside contact with the patient to complete initial assessment and to discuss discharge planning.? SW used all precautionary measures to complete initial. Role and reason for the contact was explained to Shira. Pt is alert and oriented times 4. SS used spanish interpreter services agent [id number]. Pt gave authorization for Lenard Slaughter Life Partner to be present for assessment to be conducted. Patient confirmed demographic information lives Lenard. Patient identifies claudette Morales partner, as her surrogate decision maker. Pt states prior to hospitalization she is able to complete ADL?s independently. Pt does not have DME nor O2. Pt confirmed no history of mental health or substance use. Pt PCP is Juan David Webber at [facility]. Pt pharmacy is [id number]. Advance life Directive was not discussed. Discharge options discussed and will return home. Family will provide transportation upon DC. No further intervention required at this time, social work faculty member would be available to address any further concerns. DC Plan: Home Contact: Lenard Slaughter life partner, Address: Confirmed on face sheet PCP: Juan David Webber
--- NOTE | 2025-03-06 15:45 | ESPR_ITS ---
<Statement entered by Harry Reyes MD - 03/07/25 11:31> s/p Cholecystectomy day [address] Carranza, stable, no bowel movement, is passing gas. Iron studies indicate possible hemochromatosis. Anticipating to d/c within 24-48 hours. I discussed with and supervised the sports team marketing intern physician involved in the care of this patient. Patient assessment and plan was discussed with entire medicine team, including my attending. I agree with the assessment and plan as documented by sports team marketing intern doctor. Patient care was discussed with my attending physician Dr. Toy Reyes, PGY-2 Documentation for date of: 03/06/25 Subjective Subjective Interval history: Patient is seen and examined at bedside No acute overnight events. Denies any other complaints Vitals are stable. Physical examination remains unremarkable. Labs showed normal CBC, iron 292, ALT 723 Patient is tolerating diet well. Pending plasma copper, JO-ANN screen, CMV, EBV Exam Vital Signs Temp Pulse Resp BP Pulse Ox O2 Del Method O2 Flow Rate 97.2 F 72 19 113/65 93 L Room Air 4 03/06/25 11:54 03/06/25 11:54 03/06/25 11:54 03/06/25 11:54 03/06/25 11:54 03/06/25 11:54 03/05/25 22:00 Narrative Exam General: Awake. HEENT: Normocephalic, atraumatic, mucous membranes moist. Heart: Regular rate and rhythm, no murmurs. Lungs: Clear to auscultation with no wheezing or crackles. Abdomen: Soft, nondistended, mild tenderness at the site of ports, positive bowel sounds. ?No guarding or rebound tenderness. Neurologic: Alert and oriented x3, no gross neurological deficit, and patient able to move all 4 extremities. Extremities: No edema. Skin: No rash or ecchymoses. Objective Labs 03/07/25 04:59 03/07/25 04:59 Labs: Laboratory Results - last 24 hr 03/05/25 03/06/25 03/06/25 17:50 03:42 04:55 WBC 6.2 D 7.9 RBC 4.31 4.36 Hgb 13.3 13.5 Hct 39.5 38.8 MCV 92 89 MCH 30.9 31.0 MCHC 33.7 34.8 RDW Std Deviation 42.9 42.5 Plt Count 349 349 Neut % (Auto) 67 91 H Lymph % (Auto) 25 8 L [place] % (Auto) 7 1 Eos % (Auto) 1 0 Baso % (Auto) 0 0 Neut # (Auto) 4.2 7.2 Lymph # (Auto) 1.6 0.6 L [place] # (Auto) 0.4 0.1 Eos # (Auto) 0.1 0.0 Baso # (Auto) 0.0 0.0 Immature Gran # (Auto) 0.02 H 0.02 H Absolute Nucleated RBC 0.00 0.00 Immature Gran % 0 0 Nucleated RBC % 0 0 Sodium 143 135 L Potassium 4.4 4.1 Chloride 107 101 Carbon Dioxide 24.7 21.4 Anion Gap 11 13 BUN 6 L 6 L Creatinine 0.6 0.6 Estim Creat Clear Calc 122.4 124.2 eGFR > 60 > 60 BUN/Creatinine Ratio 10 L 10 L Glucose 91 178 H D Calculated Osmolality 282 271 L Calcium 8.5 9.0 Corrected Calcium 8.5 9.0 Phosphorus 3.1 Magnesium 2.0 Iron 292 H* TIBC 337 Iron Saturation 86 H Unsat Iron Binding 45 L Total Bilirubin 1.1 1.2 ALT 778 H* 723 H* Alkaline Phosphatase 87 88 Lactate Dehydrogenase 435 H Total Protein 6.4 6.8 Albumin 4.1 D 4.5 Globulin 2.3 2.3 Albumin/Globulin Ratio 1.8 2.0 Ur Collection Type Clean Catch Urine Color Lt-Yellow Urine Clarity Clear Urine pH 5.5 Ur Specific [place] 1.020 Urine Protein Negative Urine Glucose (UA) Negative Urine Ketones 3+ A Urine Blood Negative Urine Nitrite Negative Urine Bilirubin Negative Urine Urobilinogen (Auto) Negative Ur Leukocyte Esterase Positive Urine RBC 7 H Urine WBC 7 H Ur Squamous Epith Cells 9 H Urine Bacteria None Acetaminophen < 2.0 L Quality Measures Quality Measures none Assessment & Plan Assessment Current Active Medications: Generic Name Dose Route Start Last Admin Trade Name Freq PRN Reason Stop Dose Admin Acetaminophen 650 mg 03/05/25 17:59 Acetaminophen 325 Mg Tablet PO 04/04/25 17:58 Q6H PRN PAIN SCALE 1-3 (mild Hydrocodone Bitart/Acetaminophen 1 tab 03/05/25 17:59 03/06/25 09:10 Hydrocodone/Apap 10/325 Tab PO 03/10/25 17:58 1 tab Q4HR PRN Administration PAIN SCALE 7-10 (Severe Docusate Sodium 100 mg 03/06/25 09:00 03/06/25 09:10 Docusate Sod 100 Mg Capsule PO 04/05/25 08:59 100 mg BID JAIRO Administration Protocol Piperacillin/Tazobactam/Dextrose 3.375 gm in 50 mls @ 12.5 mls/hr 03/05/25 18:15 03/06/25 14:03 Zosyn IV 03/12/25 18:14 12.5 mls/hr Q8HR JAIRO Administration Protocol Acetaminophen 1,000 mg in 100 mls @ 250 mls/hr 03/06/25 06:00 03/06/25 11:50 Ofirmev Inj IV 03/06/25 18:23 250 mls/hr Q6HR JAIRO Administration Morphine Sulfate 3 mg 03/06/25 12:44 Morphine Sulf Inj 10 Mg/Ml Vial IVP 03/10/25 22:21 Q2H PRN PAIN SCALE 7-10 (Severe Ondansetron HCl 4 mg 03/05/25 17:59 Ondansetron Inj 2 Mg/Ml Inj 2 Ml IVP 04/04/25 17:58 Q6H PRN NAUSEA OR VOMITING Protocol Pantoprazole Sodium 40 mg 03/05/25 18:00 03/06/25 09:10 Pantoprazole Inj 40 Mg Vial IVP 04/04/25 17:59 40 mg QDAY JAIRO Administration Plan Have to comeThis is a 29-year-old female with PMHx of gallstone presents to ED with acute onset abdominal pain. Admitted for acute calculus cholecystitis. Appreciate recommendations from GI and general surgery team. Acute calculus cholecystitis, S/P cholecystectomy, Day 1 Presenting with acute episode of abdominal pain, appears to be epigastric, radiating bilaterally into the back, related to meal consumption, associated with emesis. Vitals stable otherwise, Tmax 98.9, no leukocytosis, transaminitis with AST 944, ALT 623, ALP 83. Beta-hCG negative. Lipase negative. U tox negative. No UA. Has a known history of gallstones. Denies history of alcohol, drug or tobacco use. Positive Crawford sign on exam, abdominal tenderness present throughout, worse in the epigastrium. No previous surgeries, last bowel movement was yesterday and was normal. MRCP showed cholelithiasis, mild gallbladder wall edema, no hepatic or common bile duct stone. Bladder ultrasound showed cholelithiasis, primary hepatocellular disease. CT abdomen showed acute cholecystitis, mildly thickened appendix with no definite periappendicular laboratory changes, 3 mm hypodense mass in the right pelvis. Abdominal ultrasound showed acute calculus cholecystitis. Pelvic ultrasound showed right ovarian simple cyst measuring 32, times 24 x 27 mm, no uterine mass or intrauterine gestation. Plan ? Started ZOSYN (03/05 to present) ? Pain control ? Pending GGT, TYLENOL level, JO-ANN, ANTIMITOCHONDRIAL, CMV, EBV, iron panel ? Pending general surgery recommendations ? Pending GI recommendations # Acute transaminitis, resolving -Patient found to have transaminitis at the time of admission - MRCP did not show any CBD stones - Patient denies history of hemochromatosis or liver disease in the family - Iron panel showed iron 292, TIBC 337, iron saturation 86% - Hepatitis panel came back negative - Ordered JO-ANN screening, EBV, CMV, plasma copper - pending results Plan - Will continue to monitor transaminase levels - Will follow-up with the results Health maintenance Diet: Low fat GI prophylaxis: PROTONIX DVT prophylaxis: HEPARIN subcu Antibiotics: ZOSYN CODE STATUS: Full code Patient plan of care was discussed with the attending physician, Dr. Yeager and senior resident Dr. Eric Barba, PGY1 Attending Provider Attestation/Addendum I, Gauri Yeager DO, attest that I was physically present for the steward portions of the service and evaluated the patient with the resident and I reviewed and discussed the case with the resident and agree with the resident's findings and plans of care as documented above Patient seen eval this a.m. Patient underwent laparoscopic cholecystectomy yesterday. Incisions appear clean dry and intact. Patient reports minimal pain at this time. She has not passed gas, but has been burping. She denies any nausea or vomiting otherwise. She states the pain that she has is different from her other pain when she presented to the ER. She is tolerating liquid diet at this time. Diet to be advanced as per surgeon. Noted to have elevated iron and iron saturation of 86%. Case discussed with GI, suspect hereditary hemochromatosis. Will send for HFE gene mutation. Patient states that her mother has fatty liver and her father has diabetes mellitus. She denies any skin darkening and states that her skin is quite fair in comparison to her family members. Will check an A1c as well.
--- NOTE | 2025-03-06 16:11 | PC.SS ---
SS spoke with Opal, Registration, updated PCP to Alisia Webber and updated address to [facility] [place]
[2025-03-06 16:20] LABS: Misc Send Out* See Sep Rpt
[2025-03-06 16:34] LABS: Glucose Estimated Average 103 mg/dL (80-131); Hemoglobin A1C 5.2 % Hgb (4.8-6.0)
--- NOTE | 2025-03-06 17:02 | PD.IMCONS ---
HPI Data of Consult Requesting Physician: Gauri Yeager DO Primary Care Provider: Juan David Webber MD Consult Narrative Reason for consult: Abnormal LFTs History of present illness: 29 years old female comes in to the hospital with epigastric abdominal pain nausea vomiting was due to acute cholecystitis requiring laparoscopic cholecystectomy I have been consulted for elevated LFTs with a total bilirubin 1.1 ALT 778 we can do AST because of the laboratory issues and alk phos normal at 87 LDH is 435 Iron saturation is at 86% Patient does not drink any alcohol has no history of any drugs cc:: cc: Gauri Yeager DO Review of Systems Review of Systems Systems Reviewed: All systems reviewed, normal except as documented Meds Home Medications and Allergies Allergies Allergy/AdvReac Type Severity Reaction Status Date / Time No Known Allergies Allergy Verified 03/04/25 20:43 Exam Vital Signs Temp Pulse Resp BP Pulse Ox O2 Del Method O2 Flow Rate 97.4 F 55 L 18 120/73 99 Room Air 4 03/06/25 16:00 03/06/25 16:00 03/06/25 16:00 03/06/25 16:00 03/06/25 16:00 03/06/25 16:00 03/05/25 22:00 Constitutional Comments: Alert oriented Routine Respiratory Exam Comments: Normal to auscultation Routine Abdominal Exam Comments: Midepigastric tenderness Results Labs 03/06/25 04:55 03/06/25 04:55 Labs: Short CBC 03/05/25 03/06/25 Range/Units 17:50 04:55 WBC 6.2 D 7.9 (3.6-11.0) Thou/mm3 Hgb 13.3 13.5 (12.0-16.0) g/dL Hct 39.5 38.8 (36.0-46.0) % Plt Count 349 349 (140-440) Thou/mm3 BMP 03/05/25 03/06/25 17:50 04:55 Sodium 143 135 L Potassium 4.4 4.1 Chloride 107 101 Carbon Dioxide 24.7 21.4 BUN 6 L 6 L Creatinine 0.6 0.6 Glucose 91 178 H D Calcium 8.5 9.0 Liver Function 03/05/25 03/06/25 Range/Units 17:50 04:55 Total Bilirubin 1.1 1.2 (0.3-1.2) mg/dL ALT 778 H* 723 H* (10-49) U/L Alkaline Phosphatase 87 88 (46-116) U/L Albumin 4.1 D 4.5 (3.5-5.0) gm/dL Urine 03/06/25 Range/Units 03:42 Urine Color Lt-Yellow (Lt Yel-Yel) Urine Clarity Clear (Clear/Hazy) Urine pH 5.5 (5.0-7.0) Ur Specific [place] 1.020 (1.001-1.035) Urine Protein Negative (Neg - Trace) Urine Glucose (UA) Negative (Negative) Assessment and Plan Additional Assessment & Plan Additional Plan: # Abnormal LFTs with very high iron saturation at 86% and nonalcoholic patient patient may have underlying hemochromatosis Recommend the following Genetic testing for the hemochromatosis which has been ordered Actin IgG antibody antimitochondrial antibody alpha 1 antitrypsin If LFTs continue to deteriorate we will consider liver biopsy Thank you very much for the opportunity to participate in the care of this patient
--- NOTE | 2025-03-06 18:00 | PC.NURSE ---
Received call from lab regarding lab send outs, wanted to see if can draw labs on Saturday morning due to not being able to send out labs until Saturday. RN called Dr. Wagner, per Dr. Wagner still wants labs drawn today. RN called lab and spoke with Diya regarding Dr. Wagner orders to continue to draw labs today.
[2025-03-06] MEDS: IBUPROFEN TAB 600 MG TABLET PO (21:28)
[2025-03-07] VITALS: BP 108/52; PULSE 60; RESP 18; TEMP 36.6; O2SAT 97
[2025-03-07 04:00] VITALS: BP 112/55; PULSE 57; RESP 18; TEMP 36.7; O2SAT 98
[2025-03-07 04:45] VITALS: PULSE 62; RESP 18; RESP 97
[2025-03-07] MEDS: PIPER/TAZO 3.375 GM PREMIX 3.375 GM/50 ML BAG IV (05:34)
[2025-03-07 06:01] LABS: Basophils % (Auto) 0 % (0-2.5); Eosinophils % (Auto) 1 % (0-10); Hematocrit 34.6 % (36.0-46.0); Hemoglobin 11.9 g/dL (12.0-16.0); Immature Granulocytes % (Auto) 0 % (0-0); Immature Granulocytes Auto 0.02 Thou/mm3 (0.00-0.00); Lymphocytes # (Auto) 3.3 Thou/mm3 (1.0-4.8); Lymphocytes % (Auto) 38 % (10-50); Mean Corpuscular HGB Conc 34.4 g/dl (31.0-37.0); Mean Corpuscular Hemoglobin 31.2 pg (25.0-35.0); Mean Corpuscular Volume 91 fL (80-100); Monocytes # (Auto) 0.7 Thou/mm3 (0.0-0.8); Monocytes % (Auto) 8 % (0-12); Neutrophils # (Auto) 4.6 Thou/mm3 (1.8-7.7); Neutrophils % (Auto) 54 % (37-80); Nucleated Red Blood Cell % 0 /100 WBC (0); Platelet Count 342 Thou/mm3 (140-440); RDW Standard Deviation 43.4 fL (36.4-46.3); Red Blood Count 3.81 Miln/mm3 (4.00-5.20); White Blood Count 8.7 Thou/mm3 (3.6-11.0)
[2025-03-07 07:20] LABS: Ferritin 206 ng/mL (7.3-270.7)
--- NOTE | 2025-03-07 07:35 | PD.RESPRO ---
Documentation for date of: 03/07/25 Subjective Subjective Interval history: No acute overnight events. Pain well-controlled. Feel better today, ambulating in hallway independently. Denies fever, chills, headaches, chest pain, sob, cough, GI or urinary symptoms. Afebrile, vital stable. No leukocytosis. Labs generally stable, ALT downtrending. Cleared for discharge by surgery team. Exam Vital Signs Temp Pulse Resp BP Pulse Ox O2 Del Method O2 Flow Rate 98.0 F 62 18 112/55 L 98 Room Air 4 03/07/25 04:00 03/07/25 04:45 03/07/25 04:45 03/07/25 04:00 03/07/25 04:00 03/07/25 04:00 03/05/25 22:00 Narrative Exam General: Awake. HEENT: Normocephalic, atraumatic, mucous membranes moist. Heart: Regular rate and rhythm, no murmurs. Lungs: Clear to auscultation with no wheezing or crackles. Abdomen: Soft, nondistended, mild tenderness at the site of ports, positive bowel sounds. ?No guarding or rebound tenderness. Neurologic: Alert and oriented x3, no gross neurological deficit, and patient able to move all 4 extremities. Extremities: No edema. Skin: No rash or ecchymoses. Surgical ports close; without drainage, erythema or tenderness. Objective Labs 03/07/25 04:59 03/07/25 04:59 Labs: Laboratory Results - last 24 hr 03/06/25 03/07/25 16:13 04:59 WBC 8.7 RBC 3.81 L Hgb 11.9 L Hct 34.6 L MCV 91 MCH 31.2 MCHC 34.4 RDW Std Deviation 43.4 Plt Count 342 Neut % (Auto) 54 Lymph % (Auto) 38 [place] % (Auto) 8 Eos % (Auto) 1 Baso % (Auto) 0 Neut # (Auto) 4.6 Lymph # (Auto) 3.3 [place] # (Auto) 0.7 Eos # (Auto) 0.0 Baso # (Auto) 0.0 Immature Gran # (Auto) 0.02 H Absolute Nucleated RBC 0.00 Immature Gran % 0 Nucleated RBC % [address] Glu mg/dL 103 Hemoglobin A1c 5.2 Ferritin 206 Quality Measures Quality Measures none Assessment & Plan Assessment Current Active Medications: Generic Name Dose Route Start Last Admin Trade Name Davianq PRN Reason Stop Dose Admin Acetaminophen 650 mg 03/05/25 17:59 Acetaminophen 325 Mg Tablet PO 04/04/25 17:58 Q6H PRN PAIN SCALE 1-3 (mild Hydrocodone Bitart/Acetaminophen 1 tab 03/05/25 17:59 03/06/25 09:10 Hydrocodone/Apap 10/325 Tab PO 03/10/25 17:58 1 tab Q4HR PRN Administration PAIN SCALE 7-10 (Severe Docusate Sodium 100 mg 03/06/25 09:00 03/06/25 21:19 Docusate Sod 100 Mg Capsule PO 04/05/25 08:59 100 mg BID JAIRO Administration Protocol Piperacillin/Tazobactam/Dextrose 3.375 gm in 50 mls @ 12.5 mls/hr 03/05/25 18:15 03/07/25 05:34 Zosyn IV 03/12/25 18:14 12.5 mls/hr Q8HR JAIRO Administration Protocol Morphine Sulfate 3 mg 03/06/25 12:44 Morphine Sulf Inj 10 Mg/Ml Vial IVP 03/10/25 22:21 Q2H PRN PAIN SCALE 7-10 (Severe Ondansetron HCl 4 mg 03/05/25 17:59 Ondansetron Inj 2 Mg/Ml Inj 2 Ml IVP 04/04/25 17:58 Q6H PRN NAUSEA OR VOMITING Protocol Pantoprazole Sodium 40 mg 03/05/25 18:00 03/06/25 09:10 Pantoprazole Inj 40 Mg Vial IVP 04/04/25 17:59 40 mg QDAY JAIRO Administration Plan Have to Anna Marie is a 29-year-old female with PMHx of gallstone presents to ED with acute onset abdominal pain. Admitted for acute calculus cholecystitis. Appreciate recommendations from GI and general surgery team. Afebrile, vital stable. No leukocytosis, Hgb 11.9. CHEM panel pending. Acute calculus cholecystitis POD 2 cholecystectomy Presenting with acute episode of abdominal pain, appears to be epigastric, radiating bilaterally into the back, related to meal consumption, associated with emesis. Vitals stable otherwise, Tmax 98.9, no leukocytosis, transaminitis with AST 944, ALT 623, ALP 83. Beta-hCG negative. Lipase negative. U tox negative. No UA. Has a known history of gallstones. Denies history of alcohol, drug or tobacco use. Positive Crawford sign on exam, abdominal tenderness present throughout, worse in the epigastrium. No previous surgeries, last bowel movement was yesterday and was normal. MRCP showed cholelithiasis, mild gallbladder wall edema, no hepatic or common bile duct stone. Bladder ultrasound showed cholelithiasis, primary hepatocellular disease. CT abdomen showed acute cholecystitis, mildly thickened appendix with no definite periappendicular laboratory changes, 3 mm hypodense mass in the right pelvis. Abdominal ultrasound showed acute calculus cholecystitis. Pelvic ultrasound showed right ovarian simple cyst measuring 32, times 24 x 27 mm, no uterine mass or intrauterine gestation. Underwent uncomplicated cholecystectomy on 03/05/2025 ? Started ZOSYN (03/05 to present) ? Pain control ? General Surgery following Acute transaminitis, resolving Found to have transaminitis at the time of admission. MRCP did not show any CBD stones. Denies history of hemochromatosis or liver disease in the family. Iron panel showed iron 292, TIBC 337, iron saturation 86%. Hepatitis panel came back negative. ACETAMINOPHEN level <2.0 Ordered JO-ANN screening, EBV, CMV, plasma copper - pending results GI considering biopsy if LFTs continue tolerating. - Will continue to monitor transaminase levels - Will follow-up with the results ? Pending plasma copper, EBV, CMV, JO-ANN screen, ANTIMITOCHONDRIAL, actin IgG, alpha 1 antitrypsin ? GI following Health maintenance Diet: Low fat GI prophylaxis: PROTONIX DVT prophylaxis: HEPARIN subcu Antibiotics: ZOSYN CODE STATUS: Full code Case was discussed with attending physician and senior resident. Sergey Rosenthal DO PGYI
[2025-03-07 07:40] VITALS: BP 120/70; PULSE 54; RESP 16; TEMP 37.1; O2SAT 98
[2025-03-07 07:40] LABS: Alanine Aminotransferase 432 U/L (10-49); Albumin, Serum 3.8 gm/dL (3.5-5.0); Albumin/Globulin Ratio 1.7 (1.2-2.2); Alkaline Phosphatase 65 U/L (46-116); Anion Gap 13 (7-16); BUN/Creatinine Ratio 16 Ratio (12-20); Bilirubin,Total 0.6 mg/dL (0.3-1.2); Blood Urea Nitrogen 11 mg/dL (9-23); Calcium 8.5 mg/dL (8.3-10.6); Calcium (Corrected) 8.7 mg/dL (8.5-10.1); Carbon Dioxide 24.5 mMol/L (20.0-31.0); Chloride 106 mMol/L (98-107); Creatinine (Component) 0.7 mg/dL (0.6-1.3); Estimated Creatinine Clearance 106.5 mL/min (>60); Globulin 2.2 gm/dL (2.3-3.5); Glucose 118 mg/dL (74-106); Magnesium 2.1 mg/dL (1.6-2.6); Osmolality,Calculated 285 (275-295); Phosphorous 3.7 mg/dL (2.4-5.1); Sodium 143 mMol/L (136-145); eGFR > 60 See Note
[2025-03-07 07:56] VITALS: PULSE 57; RESP 18; RESP 99
[2025-03-07] MEDS: DOCUSATE SOD 100 MG CAPSULE PO (09:00)
[2025-03-07] MEDS: PANTOPRAZOLE INJ 40 MG VIAL IVP (09:00)
[2025-03-07 11:27] VITALS: BP 119/82; PULSE 56; RESP 16; TEMP 36.9; O2SAT 97
--- NOTE | 2025-03-07 12:54 | ESDS_ITS ---
<Statement entered by Gauri Yeager DO - 03/07/25 13:27> I, Gauri Yeager DO, attest that I was physically present for the steward portions of the service and evaluated the patient with the resident and I reviewed and discussed the case with the resident and agree with the resident's findings and plans of care as documented above Planned Discharge Date 03/07/25 DS: Providers Provider Date of admission: 03/05/25 18:00 Primary care physician: Juan David Webber MD Admitting Provider: Gauri Yeager DO Attending Provider on Admission: Gauri Yeager DO Consults: 03/05/25 05:34 Consult to General Surgery Stat Comment: Consulting Provider: Micah Carranza 03/05/25 19:11 Consult to Gastroenterology Routine Comment: Acute Transaminitis Consulting Provider: Peter Wagner Attending Provider on DC: Sergey Rosenthal MD Discharging Provider: Sergey Rosenthal MD DS: Diagnosis Problem List Completed Was Problem List Reviewed/Reconciled?: Yes Hospital Course Hospital Course Hospital course: This is a 29-year-old female PMHx of gallstones presented to ED with acute abdominal pain, admitted for acute transaminitis (AST 944, ALT 723), and acute calculus cholecystitis. Continued on ANTIBIOTICS. Underwent uncomplicated lap jodi with intraoperative cholangiogram. Symptom resolved, she was tolerating oral intake, having regular bowel movements, without abdominal pain, nausea or vomiting. Vitals remained stable, afebrile, no leukocytosis. CHEM panel stable 9 over baseline. Will follow-up with general surgery within 1-2 weeks of discharge. ACETAMINOPHEN level was less than 2, lipase is negative. She will follow-up with GI, within 1-2 weeks of discharge to review pending labs including: Hep panel, EBV, CMV, JO-ANN, ANTIMITOCHONDRIAL, plasma copper. Suspected hemochromatosis based on iron pattern which is showing iron to 92, TIBC 337, iron saturation 86, unsaturated iron 45, FERRITIN 206. Of note: there was 33 mm hypodense mass of right pelvis. Recommended INFECTION PREVENTION PRACTITIONER follow- up outpatient. IMAGING FINDINGS: * MRCP showed cholecystolithiasis, mild gallbladder wall edema, no hepatic or common bile duct stones. * Gallbladder ultrasound showed cholelithiasis, primary hepatocellular disease. * Abdominal CT showed acute cholecystitis, mildly thickened appendix without definitive periappendiceal inflammatory, 33 mm hypodense mass right pelvis. * Abdominal ultrasound showed acute calculus cholecystitis. * Pelvic ultrasound showed right ovarian simple cyst 32 x 24 x 27 mm, no uterine mass or intrauterine gestation, radiology recommend 3-6 month follow-up pelvic sonography to document stability of mildly prominent left ovary. * Perioperative cholangiogram showed no common bile duct stones or obstruction. PATIENT INSTRUCTIONS: Follow-up with PCP within 1-2 weeks of discharge. Please discuss with PCP 33 mm hypodense mass found in the right pelvis, may need gynecology workup. Follow-up with general surgery, Dr. Carranza within 1-2 weeks of discharge. Please follow return to activity instructions as provided by your surgeon below. Follow-up with GI, Dr. Wagner, within 1-2 weeks of discharge to review pending labs. Return to Emergency Room if symptoms persist, worsen, or new symptoms develop. Continue taking medications as prescribed below. ADMISSION DIAGNOSES: Acute calculus cholecystitis S/P cholecystectomy Acute transaminitis, resolving Suspected hemochromatosis Case was discussed with attending physician and senior resident. Sergey Rosenthal DO PGYI Time Spent with Patient Time attestation: Total time spent providing and/or coordinating discharge services: Greater than 35 minutes. Time spent: Greater than 30 minutes Exam Vital Signs Temp Pulse Resp BP Pulse Ox O2 Del Method O2 Flow Rate 98.4 F 56 L 16 119/82 97 Room Air 4 03/07/25 11:27 03/07/25 11:27 03/07/25 11:27 03/07/25 11:27 03/07/25 11:27 03/07/25 04:00 03/05/25 22:00 Narrative Exam General: Awake. HEENT: Normocephalic, atraumatic, mucous membranes moist. Heart: Regular rate and rhythm, no murmurs. Lungs: Clear to auscultation with no wheezing or crackles. Abdomen: Soft, nondistended, mild tenderness at the site of ports, positive bowel sounds. ?No guarding or rebound tenderness. Neurologic: Alert and oriented x3, no gross neurological deficit, and patient able to move all 4 extremities. Extremities: No edema. Skin: No rash or ecchymoses. Surgical ports close; without drainage, erythema or tenderness. Discharge Plan Plan Patient Disposition: HOME (Self Care) Care Plan Goals: * Follow-up with PCP within 1-2 weeks of discharge. * Please discuss with PCP 33 mm hypodense mass found in the right pelvis, may need gynecology workup. * Follow-up with general surgery, Dr. Carranza within 1-2 weeks of discharge. * Please follow return to activity instructions as provided by your surgeon below. * Follow-up with GI, Dr. Wagner, within 1-2 weeks of discharge to review pending labs, and suspected hemochromatosis. * Return to Emergency Room if symptoms persist, worsen, or new symptoms develop. * Continue taking medications as prescribed below. Prescriptions/Referrals Prescriptions/Med Rec: New docusate sodium [Colace] 100 mg capsule 100 mg PO BID Qty: 20 0RF ibuprofen 600 mg tablet 600 mg PO Q8H PRN (Reason: pain (scale score 4-6)) Qty: 15 0RF hydrocodone-acetaminophen 5-325 mg tablet 1 tab PO Q6H MDD 4 PRN (Reason: pain (scale score 7-10)) Qty: 10 0RF Referrals: No Primary/Family,Physician [Referring Provider] - Patient/Caregiver Discharge Instructions Discharge Activity: activity as tolerated Education Materials: Preventing Surgical Site Infections, ED Diet, Low Fat Print Language: Arabic Activity Restrictions/Additional Instructions: May shower in 24 hours. Avoid lifting, straining, pulling or pushing for 4 weeks. May take over the counter laxatives if no bowel movement in 2 days. Follow up with Dr. Carranza in 2 weeks, call [phone] for an appointment. Continue low-fat diet for 1 week then advance diet as tolerated. Stand Alone Forms: Polina Award Info., Patient Portal Info Letter Discharge Order Discharge Orders: Discharge (Routine); Ordered 03/07/25 Ordered By: Sergey Rosenthal Quality Discharge Quality Measures VTE prophylaxis
--- NOTE | 2025-03-07 21:42 | ESPR_ITS ---
Documentation for date of: 03/07/25 Subjective Subjective Interval history: Late entry for the note Case discussed with the internal medicine team LFTs trending downwards No need for the patient stay in the hospital Workup ordered for the chronic liver disease and chronic active hepatitis can be followed as an outpatient Exam Vital Signs Temp Pulse Resp BP Pulse Ox O2 Del Method O2 Flow Rate 98.4 F 56 L 16 119/82 97 Room Air 4 03/07/25 11:27 03/07/25 11:27 03/07/25 11:27 03/07/25 11:27 03/07/25 11:27 03/07/25 04:00 03/05/25 22:00 Objective Labs 03/07/25 04:59 03/07/25 04:59 Labs: Laboratory Results - last 24 hr 03/07/25 04:59 WBC 8.7 RBC 3.81 L Hgb 11.9 L Hct 34.6 L MCV 91 MCH 31.2 MCHC 34.4 RDW Std Deviation 43.4 Plt Count 342 Neut % (Auto) 54 Lymph % (Auto) 38 [place] % (Auto) 8 Eos % (Auto) 1 Baso % (Auto) 0 Neut # (Auto) 4.6 Lymph # (Auto) 3.3 [place] # (Auto) 0.7 Eos # (Auto) 0.0 Baso # (Auto) 0.0 Immature Gran # (Auto) 0.02 H Absolute Nucleated RBC 0.00 Immature Gran % 0 Nucleated RBC % 0 Sodium 143 Potassium 4.0 Chloride 106 Carbon Dioxide 24.5 Anion Gap 13 BUN 11 Creatinine 0.7 Estim Creat Clear Calc 106.5 eGFR > 60 BUN/Creatinine Ratio 16 Glucose 118 H D Calculated Osmolality 285 Calcium 8.5 Corrected Calcium 8.7 Phosphorus 3.7 Magnesium 2.1 Ferritin 206 Total Bilirubin 0.6 D ALT 432 H Alkaline Phosphatase 65 D Total Protein 6.0 Albumin 3.8 D Globulin 2.2 L Albumin/Globulin Ratio 1.7 Impressions Impression: Transaminitis improving Okay to discharge patient home Assessment & Plan A&P Narrative # Abnormal LFTs with very high iron saturation at 86% and nonalcoholic patient patient may have underlying hemochromatosis Recommend the following Genetic testing for the hemochromatosis which has been ordered Actin IgG antibody antimitochondrial antibody alpha 1 antitrypsin If LFTs continue to deteriorate we will consider liver biopsy Thank you very much for the opportunity to participate in the care of this patient Time Spent With Patient Time: Total time spent is greater than 50% in coordination of care (as documented) at patient's floor/unit and/or counseling patient:
[2025-03-13 15:34] LABS: EBV VCA Ab (IgM) <36.00 U/mL
[2025-03-15 07:05] LABS: Gamma Glutamyl Transpeptidase* 369 U/L (3-50)
[2025-03-15 07:10] LABS: ANA Screen, IFA NEGATIVE (NEGATIVE); Mitochondrial Ab NEGATIVE (NEGATIVE)
[2025-03-15 07:11] LABS: CMV Antibody (IgM) <30.00 AU/mL; Copper* 106 mcg/dL (70-175); EBV Ab Interpretation PAST
== END 2025-03-07 13:15 | disposition home or self-care (01) | DRG 263 ==
LOC: SERX 03-05 18:38 → SERHOLD 03-05 19:10 → S3SX 03-05 19:58 → SERHOLD 03-08 05:50
PROVIDERS: Internal Medicine; Nurse Practitioner Family; Physician Assistant; Surgery; Admitting Provider Internal Medicine; Emergency Provider Emergency Medicine; PCP Family Medicine; Visit Provider Internal Medicine
PROC: 0FT44ZZ Resection of Gallbladder, Percutaneous Endoscopic Approach (ICD-10-PCS; CPT 47562; principal; 2025-03-05 21:00)
DX: K80.00 Calculus of gallbladder with acute cholecystitis without obstruction (principal); K82.8 Other specified diseases of gallbladder; N83.291 Other ovarian cyst, right side; R74.01 Elevation of levels of liver transaminase levels
CPT/HCPCS: 36415; 74177; 74300; 76705; 76856; 80053; 80061; 80074; 80307; 80329; 81001; 81025; 82103; 82525; 82728; 82977; 83036; 83540; 83550; 83615; 83690; 83735; 84100; 85025; 85610; 85730; 86015; 86038; 86255; 86644; 86645; 86664; 86665; 96361; 96365; 96375; 96376; A4217; A4649; J0131; J1100; J1885; J2250; J2270; J2405; J2470; J2543; J2704; J3010; J3480; J3490; J7030; Q0162; Q9967; S8037; 74181; A9270; G0480